=== PATIENT | male | born 1960 | race Hispanic/Latino ===

== ENCOUNTER 2017-09-14 00:47 | Inpatient (IN) | payer BC, SELFPAY ==
[2017-09-14 01:17] LABS: #Basophils 0.1 thou/uL (0.0-0.2); #Eosinphils 0.2 thou/uL (0.0-0.7); #Lymphocytes 4.1 thou/uL (1.20-3.40); #Monocytes 0.8 thou/uL (0.11-0.59); #Neutrophils 5.1 thou/uL (1.40-6.50); %Basophils 0.8 % (0.0-1.0); %Eosinophils 1.6 % (0.0-10.0); %Lymphocytes 40.2 % (21.0-51.0); %Monocytes 7.5 % (0.0-10.0); Hematocrit 45.3 % (42.0-52.0); Mean Platelet Volume 7.6 fL (7.4-10.4); Red Blood Cell (RBC) Count 4.91 mill/uL (4.70-6.10); White Blood Cell (WBC) Count 10.3 thou/uL (4.8-10.8)
[2017-09-14 01:25] LABS: PTT 30.4 SEC (22.9-36.1); Prothrombin Time 12.6 SEC (12.0-14.7)
[2017-09-14 01:28] LABS: Digoxin Less than 0.15 ng/mL (0.8-2.0)
[2017-09-14 01:29] LABS: Chloride 107 mmol/L (98-107)
[2017-09-14 01:30] LABS: ALT (SGPT) 14 U/L (8-55); AST (SGOT) 13 U/L (5-34); Alkaline Phosphatase 81 U/L (40-150); Anion Gap 12 mmol/L (10-20); BUN (Urea Nitrogen) 21 mg/dL (8.4-25.7); Bilirubin, Total 0.3 mg/dL (0.2-1.2); CK (CPK) 131 U/L (30-200); Calc. Creatinine Clearance 0 mL/min (70-130); Calcium 9.3 mg/dL (7.8-10.44); Carbon Dioxide 25 mmol/L (22-29); Estimated GFR-MDRD 72; Globulin 3.3 g/dL (2.4-3.5); Lipase 39 U/L (8-78); Protein, Total 7.3 g/dL (6.0-8.3)
[2017-09-14] MEDS ORDERED: Nitroglycerin 2% Ointment 1 INCH/1 GM Packet ONE ×2 (02:11→13:03)
[2017-09-14] MEDS ORDERED: Ondansetron ODT 4 MG TAB SL PRN (03:10)
[2017-09-14] MEDS ORDERED: Acetaminophen 325 MG TAB PO PRN ×2 (03:10→11:19)
[2017-09-14] MEDS ORDERED: Ondansetron HCl/PF 4 MG/2 ML Vial IVP PRN (03:10)
[2017-09-14 03:32] VITALS: BMI 30.7
[2017-09-14] MEDS ORDERED: Heparin 10,000 UNITS/ 10 ML VIAL SLOW IVP SCH (05:30)
[2017-09-14] MEDS ORDERED: Heparin 25,000 units/D5W 500 ML IV SCH (05:30)
--- NOTE | 2017-09-14 05:42 | PDOC.EVN ---
Event Note - Event Note Event Note: [id number] h&p dictated `1. Angina 2. nstemi 3. htn 4. pain plan: see orders
[2017-09-14] MEDS ORDERED: Nitroglycerin 2% Ointment 1 INCH/1 GM Packet TOP SCH (06:00)
[2017-09-14] MEDS ORDERED: Heparin 25,000 units/D5W 500 ML IVPB SCH ×2 (06:00→23:00)
[2017-09-14] MEDS: Heparin 10,000 UNITS/ 10 ML VIAL SLOW IVP SCH ×2 (06:10→22:55)
[2017-09-14] MEDS ORDERED: Atorvastatin Calcium 20 MG TAB PO SCH ×2 (06:15→21:00)
[2017-09-14 06:36] LABS: Hematocrit 43.2 % (42.0-52.0)
[2017-09-14 07:13] LABS: PTT 147.9 SEC (22.9-36.1)
[2017-09-14 08:10] LABS: Troponin I 11.676 ng/mL (< 0.028)
[2017-09-14] MEDS: Lisinopril 5 MG TAB PO SCH (08:11)
--- NOTE | 2017-09-14 08:50 | RAD ---
1 VIEW CHEST: Date: 09/14/17 HISTORY: Chest pain x1 day. COMPARISON: None. FINDINGS: Portable upright chest demonstrates normal cardiac silhouette. Pulmonary vessels and hilum are joselyn l. Costophrenic angles are clear. No masses. No consolidation. No pneumothorax or osseous abnormalit ies. IMPRESSION: No acute cardiopulmonary process. POS: [facility]
[2017-09-14] MEDS ORDERED: FLU VACC QS2017-18 36 mo. & older 0.5 ML SYRINGE IM ONE (09:00)
[2017-09-14] MEDS ORDERED: Amlodipine 5 MG TAB PO SCH (09:00)
--- NOTE | 2017-09-14 10:57 | HP ---
DATE OF ADMISSION: 09/14/2017 CHIEF COMPLAINT: Chest pain. HISTORY OF PRESENT ILLNESS: The patient is 57 years old male with past medical history of hypertension, having intermittent chest pain for the past 1 month, chest pain occurs on exertion, release on his own and release at rest also, mild in intensity, last night, all of a sudden, the patient was watching TV and started having chest pain. Chest pain was substernal, pressure kind of pain, mild, 4/10, pain improved in the ER after nitro and aspirin was given. Denies any trouble breathing, denies any sweating, denies any nausea, denies any vomiting, denies any diarrhea, denies any bloody stools, and denies any black stools. PAST MEDICAL HISTORY: Hypertension. PAST SURGICAL HISTORY: None. SOCIAL HISTORY: Denies smoking, denies alcohol, denies any drugs. FAMILY HISTORY: Positive for heart problems. REVIEW OF SYSTEMS: Constitutional: Denies any fever, denies any chills. Eyes : Denies vision problems. Ears: Denies hearing loss. Neck: Denies any neck pain. Cardiovascular system: Positive for chest pain. Respiratory system: Denies any cough, denies any sputum production. Gastrointestinal: Denies nausea, vomiting. Integumentary: Denies any rash. Musculoskeletal: Denies any joint deformities. All other review of systems are reviewed and are negative. PHYSICAL EXAMINATION: CONSTITUTIONAL/VITAL SIGNS: At the time of H and P performed temperature 98, blood pressure is 138/78, heart rate 78, pulse ox 95%, respirations 18. GENERAL: The patient appears comfortable. HEENT: Pupils equal, round, and reactive. Anterior nares patent. Nose normal. Ears normal. Teeth intact. Tongue is moist. NECK: Supple. No JVD. CARDIOVASCULAR SYSTEM: S1, S2 present. Regular rate and rhythm, no murmurs, no rubs, no gallops. RESPIRATORY SYSTEM: No wheezing, no rhonchi. Breath sounds bilaterally. GASTROINTESTINAL: Abdomen soft, nontender, no guarding, no organomegaly, no masses felt. MUSCULOSKELETAL: No edema. INTEGUMENTARY: No obvious rashes seen. PSYCHIATRIC: Mood is appropriate at this time. LABORATORY DATA: At the time of H and P performed, white count 10.3, hemoglobin 15.4, platelet count is 291. PT 12.6, INR 0.9. BMP: Sodium 140, potassium 3.8, chloride 107, CO2 of 25, BUN 21, creatinine 1.01. Troponin 0.010 , digoxin less than 0.15. Repeat troponin is 3.26. ASSESSMENT AND PLAN: The patient is 57 years old male. 1. Angina/chest pain: currently chest pain resolved. Plan to continue nitro paste. Plan to monitor the patient closely. 2. Non-ST segment elevation myocardial infarction. Plan to check cardiac enzymes. Plan to monitor the patient closely. Plan to start patient on heparin drip per ACS protocol. Plan to consult Cardiology to evaluate the patient. Plan to keep patient n.p.o. 3. Hypertension. Monitor blood pressure. Continue home blood pressure medications. 4. Pain. P.r.n. pain medications. The case was discussed in detail with the patient. The patient is FULL CODE. MTDD
--- NOTE | 2017-09-14 11:18 | PDOC.PN ---
- Subjective Encounter Start Date: 09/14/17 Encounter Start Time: 07:15 Subjective: no current chest pain or sob -: brother at bedside - Objective MAR Reviewed: Yes Vital Signs & Weight: Vital Signs (12 hours) Temp Pulse Resp BP BP Pulse Ox 09/14/17 08:11 83 09/14/17 08:09 83 130/84 09/14/17 07:56 96.8 F L 83 16 130/84 98 09/14/17 06:10 97.7 F 88 18 128/79 97 09/14/17 03:34 98 F 78 18 09/14/17 03:01 98 F 78 18 138/78 95 Weight Weight 205 lb 8 oz I&O: 09/13/17 09/14/17 09/15/17 06:59 06:59 06:59 Output Total 250 Balance -250 Result Diagrams: 09/14/17 06:22 09/14/17 01:01 Phys Exam - Physical Examination HEENT: PERRLA, moist MMs Neck: no JVD, supple Respiratory: no wheezing, no rales Cardiovascular: RRR, no significant murmur Gastrointestinal: soft, non-tender, positive bowel sounds Musculoskeletal: no edema, pulses present Neurological: non-focal, moves all 4 limbs Psychiatric: A&O x 3 Dx/Plan (1) NSTEMI (non-ST elevated myocardial infarction) Code(s): I21.4 - NON-ST ELEVATION (NSTEMI) MYOCARDIAL INFARCTION Status: Acute (2) HTN (hypertension) Code(s): I10 - ESSENTIAL (PRIMARY) HYPERTENSION Status: Chronic Qualifiers: Hypertension type: essential hypertension Qualified Code(s): I10 - Essential (primary) hypertension - Plan keep pt npo -: will likely need cardiac cath -: will f/u with -: is on asp, lipitor, small dose lopressor, heparin drip * . Review of Systems - Medications/Allergies Allergies/Adverse Reactions: Allergies Allergy/AdvReac Type Severity Reaction Status Date / Time No Known Drug Allergies Allergy Verified 09/14/17 03:21 Medications: Current Medications Acetaminophen (Tylenol) 650 mg PO Q4H PRN PRN Reason: Headache/Fever or Pain Stop: 09/14/17 15:00 Amlodipine Besylate (Norvasc) 5 mg PO DAILY KYE Last Admin: 09/14/17 08:09 Dose: 5 mg Aspirin (Aspirin Chewable) 81 mg PO DAILY KYE Stop: 09/14/17 15:00 Last Admin: 09/14/17 08:11 Dose: 81 mg Atorvastatin Calcium (Lipitor) 20 mg PO HS KYE Heparin Sodium (Porcine) (Heparin 1,000 Units/Ml (10 Ml)) 0 units SLOW IVP ASDIR KYE PRN Reason: Protocol Last Admin: 09/14/17 06:10 Dose: 4,000 units Lactated Ringer's (Lactated Ringer's) 1,000 mls @ 75 mls/hr IV .[id number] KYE Stop: 09/14/17 15:00 Heparin Sodium/Dextrose (Heparin 25,000 Units/D5w 500 Ml) 500 mls @ 0 mls/hr IVPB INF KYE; Per Protocol PRN Reason: Protocol Last Admin: 09/14/17 06:11 Dose: 500 mls Lisinopril (Zestril) 5 mg PO DAILY [facility] Last Admin: 09/14/17 08:11 Dose: 5 mg Nitroglycerin (Nitro-Bid 2% Ointment) 1 inch TOP Q8HR [facility] Stop: 09/14/17 15:00 Last Admin: 09/14/17 08:11 Dose: Not Given Ondansetron HCl (Zofran) 4 mg IVP Q6H PRN PRN Reason: Nausea/Vomiting Stop: 09/14/17 15:00 Ondansetron HCl (Zofran Odt) 4 mg SL Q6H PRN PRN Reason: Nausea/Vomiting Stop: 09/14/17 15:00 Sodium Chloride (Flush - Normal Saline) 10 ml IVF PRN PRN PRN Reason: Saline Flush Stop: 09/14/17 15:00
[2017-09-14] MEDS: Lactated Ringer's 1,000 ML IV SCH ×2 (11:51→15:39)
[2017-09-14] MEDS ORDERED: Fentanyl 100 MCG/2 ML VIAL ONE (12:39)
[2017-09-14] MEDS ORDERED: Midazolam HCl 2 mg/2 ml Vial ONE (12:39)
[2017-09-14] MEDS ORDERED: Metoprolol Tartrate 5 MG/5 ML VIAL ONE (12:56)
[2017-09-14] MEDS ORDERED: Heparin 10,000 UNITS/1 ML VIAL ONE (12:58)
[2017-09-14] MEDS ORDERED: Communication Order-Pharmacy FS ONE (13:23)
[2017-09-14] MEDS ORDERED: Nitroglycerin 0.4 MG TAB (25 Tab Bottle) SL PRN (13:24)
[2017-09-14] MEDS ORDERED: Acetaminophen/Codeine 30-300mg Tablet PO PRN ×2 (13:24)
[2017-09-14] MEDS ORDERED: traMADol HCl 50 MG TAB PO PRN (13:24)
[2017-09-14] MEDS ORDERED: Sodium Chloride 0.9% 200 ML IV SCH (13:30)
--- NOTE | 2017-09-14 14:03 | CON ---
DATE OF CONSULTATION: 09/14/2017 CARDIOLOGY CONSULTATION REASON FOR CONSULTATION: Non-ST elevation myocardial infarction with continued chest pain. HISTORY OF PRESENT ILLNESS: Ms. Sharma is a 57-year-old man. The patient has a long history of hypertension, but no other cardiac problems. States he started having pain in middle of his chest, across his chest last night and finally came here to the emergency room. He was found to have some increasing cardiac enzymes here. He was given aspirin, nitrates, and also started on intravenous heparin. However, despite that, he continues to have chest discomfort which has not resolved. The patient states the pain is not as bad as that was previously, but he still has some tightness in his chest. PAST MEDICAL HISTORY: 1. Positive for hypertension. 2. Negative for any coronary disease. 3. Unknown cholesterol status. 4. He does not smoke or use tobacco products. SOCIAL HISTORY: He has 2 young men in the room who are his sons. He has no history of smoking, otherwise has been active and healthy. REVIEW OF SYSTEMS: Constitutional: No significant weight gain or loss. Vision : No changes. Hearing: No changes. Pulmonary: No cough or wheezing. Gastrointestinal: No nausea, vomiting, diarrhea. Skin: No rashes. Neurologic : No unilateral weakness or numbness. Psychiatric: No unusual depression or anxiety. PHYSICAL EXAMINATION: GENERAL: A pleasant 57-year-old gentleman in no distress. VITAL SIGNS: Blood pressure 130/84, pulse 80s. EYES: Sclerae nonicteric. MOUTH: Mucous membranes moist. NECK: Supple, no lymphadenopathy. LUNGS: Clear. CARDIAC: Normal S1 and S2. ABDOMEN: Soft, nontender. EXTREMITIES: No clubbing, no cyanosis, or edema. Peripheral pulses are intact. SKIN: Warm and dry. LABORATORY DATA AND X-RAY FINDINGS: EKG, normal sinus rhythm, frequent PVCs, and ST depression in the lateral leads. Repeat has been ordered. Troponin is 3.26 followed by 11.67. ASSESSMENT: 1. Non-ST elevation myocardial infarction with continued chest pain. 2. Increase blood sugar may have diabetes. 3. Normal EKG. PLAN: Recommend that he proceed to cardiac catheterization. Discussed risks of stroke, heart attack, iodine allergy, interfering with blood supply to leg or kidney, stent thrombosis, stent restenosis. The patient understands and wishes to proceed. Arrangements were being made to proceed. SARINA
[2017-09-14] MEDS: Nitroglycerin 2% Ointment 1 INCH/1 GM Packet TOP SCH ×2 (14:54→22:40)
[2017-09-14] MEDS ORDERED: Metoprolol Tartrate 5 MG/5 ML VIAL IVP PRN (15:17)
[2017-09-14] MEDS ORDERED: Nitroglycerin 50 MG/250 ML BOT 250 ML IVPB SCH (15:30)
[2017-09-14] MEDS ORDERED: Metoprolol Tartrate 25 MG TAB PO SCH ×2 (15:30→21:00)
[2017-09-14] MEDS ORDERED: Iopamidol 370 76% 100 ML VIAL ONE (15:53)
--- NOTE | 2017-09-14 16:05 | CON ---
DATE OF CONSULTATION: 09/14/2017 REASON FOR CONSULTATION: Non-ST elevation myocardial infarction. HISTORY OF PRESENT ILLNESS: Mr. Sharma is a 57-year-old gentleman. The patient presented with chest pain, found to have increased cardiac enzymes. Mr. Sharma had the onset of severe substernal chest pain, the pain across his chest last night had been going off and on for about a month. It would come on with exertion go away with rest. Last n ight; however, had sudden onset it was intense and it was at rest, came to the emergency room and he was given nitroglycerin and aspirin and had improvement in chest pain. Subsequently, given heparin and the pain improved, but he states it never resolved. Patient continues to have chest pain at the present time. PAST MEDICAL HISTORY: Positive for hypertension. PAST SURGICAL HISTORY: Negative. SOCIAL HISTORY: No smoking, no alcohol, no drugs. FAMILY HISTORY: Positive for coronary artery disease. REVIEW OF SYSTEMS: Constitutional: No significant weight gain or loss. Vision: No changes. Hear ing: No changes. Pulmonary: No cough or wheezing. Gastrointestinal: No nausea, vomiting, diarrh ea. Skin: No rashes. Neurologic: No unilateral weakness or numbness. Psychiatric: No unusual d epression or anxiety. Hematologic: No unusual bruising. Genitourinary: No burning with urination . MEDICATIONS AT HOME: The patient had been taking amlodipine and lisinopril. The patient also states that he did not smoke or use tobacco. PHYSICAL EXAMINATION: GENERAL: A pleasant 57-year-old gentleman, in no distress, but continued to have luis st discomfort. VITAL SIGNS: Blood pressure 130/84; pulse 83, regular. HEENT: Sclerae nonicteric. Mouth mucous membranes moist. NECK: Supple, no lymphadenopathy. LUNGS: Clear, no wheezing, rales, or rhonchi. CARDIAC: Normal S1, normal S2. There is no murmur, rub, or gallop. ABDOMEN: Soft, nontender, no hepatosplenomegaly. EXTREMITIES: Warm, dry, no clubbing, cyanosis, or edema. HEMATOLOGIC: No unusual bruising. SKIN: Warm and dry. PERTINENT LABORATORY AND X-RAY FINDINGS: The troponin 11.676. EKG showed frequent PVCs and ST depr ession in the lateral leads. ASSESSMENT: 1. Non-ST elevation myocardial infarction with ongoing chest pain. 2. Possible diabetes with blood sugar 168. 3. Markedly abnormal electrocardiogram. PLAN: I would recommend proceeding to cardiac catheterization. Discussed risks of stroke, heart at tack, iodine allergy, loss of blood supply to the leg or kidney, stent thrombosis, stent restenosis. The patient understands and wishes to proceed.
--- NOTE | 2017-09-14 16:48 | CON ---
DATE OF CONSULTATION: 09/14/2017 HISTORY OF PRESENT ILLNESS: This is a 57-year-old gentleman with about a 1-month history of exertio nal angina. He developed angina while watching TV yesterday evening, rated 4/10 and persisted and h e presented to the emergency room where he had resolution with treatment. He had a bump in his trop onin I and an EKG showing some ST segment depression laterally. Subsequent EKG at noon today showed resolution of these changes. His troponin I peaked at 11.6 as of 6:00 this morning. PAST MEDICAL HISTORY: Includes hypertension for which he takes amlodipine 5 mg daily and Lisinopril 5 mg daily. He denies any history of elevated cholesterol and blood work [address] Kemp, was done and he was told that he had normal enzymes. PAST SURGICAL HISTORY: Negative. SOCIAL HISTORY: He is a non-smoker. He is not . He has 9 children. He has a twin brother who had coronary bypass grafting earlier this year. PHYSICAL EXAMINATION: GENERAL: He is an alert, cooperative gentleman. Height 5 feet 9 inches, weight 205 inches. NECK: No carotid bruits. LUNGS: Clear to auscultation. CARDIAC: Slight resting tachycardia. No murmurs. ABDOMEN: Soft, nontender. EXTREMITIES: He has palpable posterior tibial pulses bilaterally. He is right arm dominant, has go od left radial pulse. Cardiac catheterization demonstrated a left dominant system with an occluded nondominant right coronary artery. He had high grade lesions involving his proximal LAD as well as an obtuse marginal branch, distal circumflex and left PDA. He had apical akinesis. PLAN: At this time is for coronary bypass grafting, probably with left radial and we plan on doing this in the morning. In the meantime, maintain on heparin, begin beta blockers. Continue aspirin.
[2017-09-14] MEDS ORDERED: Potassium Chloride 60 MEQ/30 ML VIAL ONE (16:50)
[2017-09-14] MEDS ORDERED: Protamine Sulfate 250 MG/25 ML VIAL ONE (16:50)
[2017-09-14] MEDS ORDERED: Heparin 30,000 units/30 ml VIAL ONE (16:50)
[2017-09-14] MEDS ORDERED: Cardioplegic Soln 1,000 ML BAG ONE (16:50)
[2017-09-14] MEDS ORDERED: Calcium Chloride 1 GM/10 ML Abboject SYRINGE ONE (16:50)
[2017-09-14] MEDS ORDERED: Lidocaine 2% PF 100 mg/5 ml Syringe ONE (16:50)
[2017-09-14] MEDS ORDERED: Papaverine 60 MG/2 ML VIAL ONE (16:50)
[2017-09-14] MEDS ORDERED: DOPamine 400 MG/10 ML VIAL ONE (16:50)
[2017-09-14] MEDS ORDERED: Aminocaproic Acid 5 GM/20 ML VIAL ONE (16:50)
[2017-09-14] MEDS ORDERED: Sodium Bicarb 50 MEQ/50 ML Abboject 8.4% SYRINGE ONE (16:50)
[2017-09-14] MEDS ORDERED: Heparin 5,000 UNITS/ML VIAL ONE (16:50)
[2017-09-14] MEDS ORDERED: Magnesium Sulfate 1 GM/2 ML VIAL ONE (16:50)
[2017-09-14] MEDS ORDERED: Thrombin 5000 UNITS/5 ML VIAL ONE (16:50)
[2017-09-14] MEDS ORDERED: Nitroglycerin 50 MG/250 ML BOT ONE (16:50)
[2017-09-14] MEDS: Metoprolol Tartrate 25 MG TAB PO SCH (20:25)
[2017-09-15] MEDS: Nitroglycerin 2% Ointment 1 INCH/1 GM Packet TOP SCH (05:04)
[2017-09-15] MEDS: Lactated Ringer's 1,000 ML IV SCH (05:04)
[2017-09-15 05:22] LABS: Hemoglobin A1c 5.6 % (4.0-6.0)
[2017-09-15] MEDS ORDERED: Heparin 10,000 UNITS/1 ML VIAL 30,000 UNITS in Sodium Chloride 0.9% 1,000 ML FS SCH (07:00)
[2017-09-15] MEDS: Lisinopril 5 MG TAB PO SCH (07:57)
[2017-09-15] MEDS: Metoprolol Tartrate 25 MG TAB PO SCH (07:57)
--- NOTE | 2017-09-15 08:21 | CON ---
DATE OF CONSULTATION: 09/15/2017 REASON FOR CONSULTATION: CCU management. HISTORY OF PRESENT ILLNESS: This is a 57-year-old male who presented yesterday with chest pain. He was found to have multivessel coronary disease with cardiac catheterization. He also bumped his tr oponin indicative of myocardial ischemia. He is scheduled for bypass later today. At the current t breana he is not having any chest pain or shortness of breath. PAST MEDICAL HISTORY: He has no previous history of respiratory issues including no COPD, no asthma . Hypertension. PAST SURGICAL HISTORY: None. SOCIAL HISTORY: Nonsmoker, does not consume alcohol. ALLERGIES: None. FAMILY MEDICAL HISTORY: Remarkable for coronary artery disease in his identical twin brother who willard d bypass 6 months ago. REVIEW OF SYSTEMS: Otherwise, negative. PHYSICAL EXAMINATION: VITAL SIGNS: Temperature 97.7, pulse 78, blood pressure 123/65, O2 sat 100%, respiratory rate 17. GENERAL: He is awake and alert, in no distress. HEENT: Unremarkable. NECK: No JVD. LUNGS: Clear. CARDIOVASCULAR: S1, S2 regular. ABDOMEN: Soft. EXTREMITIES: No clubbing, cyanosis, or edema. LABORATORY DATA: Sodium 140, potassium 3.8, BUN 21, creatinine 1.0. Troponin 11.6, White blood yassine l count 10.3, hematocrit 45.3, platelet count 291. Chest x-ray shows no significant findings. ASSESSMENT: Myocardial infarction/coronary disease. PLAN: Bypass surgery later today. I will evaluate his potential for extubation after surgery.
[2017-09-15] MEDS ORDERED: Fentanyl 250 MCG/5 ML VIAL ONE ×2 (09:58→11:40)
[2017-09-15] MEDS ORDERED: Midazolam HCl 5 mg/5 ml Vial ONE (09:58)
[2017-09-15] MEDS ORDERED: Propofol 200 MG/20 ML VIAL ONE (10:33)
[2017-09-15] MEDS ORDERED: Vecuronium 10 MG VIAL ONE ×2 (10:33→12:27)
[2017-09-15] MEDS ORDERED: Lidocaine 2% MPF 10 ML AMP (For Epidural Use) ONE (10:33)
[2017-09-15] MEDS ORDERED: PHENYLEPHRINE-NS 100 MCG/ML 10 ML SYRINGE ONE (10:33)
--- NOTE | 2017-09-15 11:44 | EKG ---
Test Reason : Blood Pressure : / mmHG Vent. Rate : 091 BPM Atrial Rate : 091 BPM P-R Int : 130 ms QRS Dur : 092 ms QT Int : 332 ms P-R-T Axes : 015 044 076 degrees QTc Int : 408 ms Normal sinus rhythm Septal infarct , age undetermined Nonspecific ST-T changes Abnormal ECG No previous ECGs available Confirmed by DR. Richie NAVARRO ([id number]) on 09/15/2017 11:43:50 AM Referred By: ABEL Confirmed By:DR. Richie NAVARRO
[2017-09-15] MEDS ORDERED: Fentanyl 100 MCG/2 ML VIAL ONE (13:33)
[2017-09-15] MEDS ORDERED: Insulin Regular 300 UNITS/3 ML VIAL ONE (13:39)
--- NOTE | 2017-09-15 14:59 | PDOC.PN ---
- Subjective Encounter Start Date: 09/15/17 Encounter Start Time: 07:50 Subjective: no chest pain or sob -: is going to OR for cabg this am - Objective MAR Reviewed: Yes Vital Signs & Weight: Vital Signs (12 hours) Temp Pulse Resp Pulse Ox 09/15/17 08:00 98.1 F 82 14 98 09/15/17 07:57 82 09/15/17 07:00 98.1 F 09/15/17 04:00 97.7 F Weight Weight 205 lb 8 oz Most Recent Monitor Data Heart Rate from ECG 79 NIBP 119/78 NIBP BP-Mean 92 Respiration from ECG 16 SpO2 100 I&O: 09/14/17 09/15/17 09/16/17 06:59 06:59 06:59 Intake Total 2362.2 471 Output Total 1900 550 Balance 462.2 -79 Result Diagrams: 09/14/17 06:22 09/14/17 01:01 Phys Exam - Physical Examination HEENT: PERRLA, moist MMs Neck: no JVD, supple Respiratory: no wheezing, no rales Cardiovascular: RRR, no significant murmur Gastrointestinal: soft, non-tender, positive bowel sounds Musculoskeletal: no edema, pulses present Neurological: non-focal, moves all 4 limbs Psychiatric: A&O x 3 Dx/Plan (1) NSTEMI (non-ST elevated myocardial infarction) Code(s): I21.4 - NON-ST ELEVATION (NSTEMI) MYOCARDIAL INFARCTION Status: Acute (2) HTN (hypertension) Code(s): I10 - ESSENTIAL (PRIMARY) HYPERTENSION Status: Chronic Qualifiers: Hypertension type: essential hypertension Qualified Code(s): I10 - Essential (primary) hypertension (3) CAD (coronary artery disease) Code(s): I25.10 - ATHSCL HEART DISEASE OF [place] CORONARY ARTERY W/O ANG PCTRS Status: Acute Qualifiers: Coronary Disease-Associated Artery/Lesion type: [place] artery [place] vs. transplanted heart: [place] heart - Plan for CABG today -: will f/u post op -: family at bedside -: AMEYA is his oldest sister * . Review of Systems - Medications/Allergies Allergies/Adverse Reactions: Allergies Allergy/AdvReac Type Severity Reaction Status Date / Time No Known Drug Allergies Allergy Verified 09/14/17 03:21 Medications: Current Medications Nitroglycerin/Dextrose (Nitroglycerin 50 Mg/250 Ml Bot) 250 mls @ 0 mls/hr IVPB INF KYE PRN Reason: Titrate Last Admin: 09/14/17 15:38 Dose: 250 mls Heparin Sodium/Dextrose (Heparin 25,000 Units/D5w 500 Ml) 500 mls @ 0 mls/hr IVPB INF KYE; Per Protocol PRN Reason: Protocol Heparin Sodium (Porcine) 30, (000 units/ Sodium Chloride) 1,003 mls @ 0 mls/hr FS WILLCALL KYE PRN Reason: As Directed Stop: 09/15/17 18:00 Metoprolol Tartrate (Lopressor) 25 mg PO BID KYE Last Admin: 09/15/17 07:57 Dose: 25 mg Metoprolol Tartrate (Lopressor) 2.5 mg IVP ONE PRN PRN Reason: Angina Stop: 09/21/17 15:18 Last Admin: 09/14/17 15:38 Dose: 2.5 mg
[2017-09-15] MEDS ORDERED: Mag-Al 1200 mg/1200 mg/30 ML UDCUP PO PRN (15:13)
[2017-09-15] MEDS ORDERED: Acetaminophen 325 MG TAB PO PRN (15:13)
[2017-09-15] MEDS ORDERED: Fentanyl 100 MCG/2 ML VIAL SLOW IVP PRN (15:13)
[2017-09-15] MEDS ORDERED: hydrALAZINE 20 MG/ML VIAL SLOW IVP PRN (15:13)
[2017-09-15] MEDS ORDERED: Bisacodyl 10 MG SUPP PR PRN (15:13)
[2017-09-15] MEDS ORDERED: Hetastarch 6% 500 ML 500 ML IVPB PRN (15:13)
[2017-09-15] MEDS ORDERED: Nitroglycerin 50 MG/250 ML BOT 250 ML IVPB PRN (15:13)
[2017-09-15] MEDS ORDERED: Post-Op Insulin Drip Protocol IVPB ONE (15:13)
[2017-09-15] MEDS ORDERED: Guaifenesin DM 100-10/5 ML UDCUP PO PRN (15:13)
[2017-09-15] MEDS ORDERED: Promethazine HCl 25 MG/ML VIAL IM PRN (15:13)
[2017-09-15] MEDS ORDERED: DOPamine 400 MG/D5W 250 ML 250 ML IVPB PRN (15:13)
[2017-09-15] MEDS ORDERED: Phenylephrine 10 MG/NS 250 ML 250 ML IVPB PRN (15:13)
[2017-09-15] MEDS ORDERED: Bisacodyl 5 MG TAB PO PRN (15:13)
[2017-09-15] MEDS ORDERED: Magnesium Sulfate 5 GM in Sodium Chloride 0.9% 250 ML 1,000 ML IV SCH (15:15)
[2017-09-15] MEDS ORDERED: Dextrose 5% in Water 1,000 ML IV PRN (15:20)
[2017-09-15] MEDS ORDERED: Dextrose 50% Abboject 50 ML SYRINGE SLOW IVP PRN (15:20)
[2017-09-15 15:59] LABS: Hematocrit 38.3 % (42.0-52.0); Mean Platelet Volume 7.8 fL (7.4-10.4); White Blood Cell (WBC) Count 23.9 thou/uL (4.8-10.8)
[2017-09-15 16:03] LABS: PTT 30.9 SEC (22.9-36.1)
[2017-09-15 16:04] LABS: Prothrombin Time 16.3 SEC (12.0-14.7)
--- NOTE | 2017-09-15 16:06 | OP ---
DATE OF PROCEDURE: 09/15/2017 PREOPERATIVE DIAGNOSES: Coronary artery disease, status post non-STEMI. PROCEDURE: Coronary artery bypass graft x5 with CRUZ good quality to a surprisingly poor quality 1. 5 mm LAD with posterior plaquing, left radial good quality to an obtuse marginal 1.5-2 mm, saphenous vein, small to good quality to a left PDA, distal circumflex and occluded ramus with the ramus bein g a 1.25 mm vessel. SURGEON: Devyn Lafleur M.D. THERAPEUTIC PROGRAM WORKER: Nacho Kidd M.D. TRANSFUSION: None. PROCEDURE IN DETAIL: After adequate anesthesia had been obtained, the patient was prepped and drape d. I harvested the left radial after ensuring good plethysmography with occlusion. Following this, the wound was closed. I then did an endovascular vein harvest of the left greater saphenous vein. Following this, I performed a median sternotomy and opened the right pleura widely with the sternal saw and then, I soak this up with 2-0 Vicryl suture. Left internal mammary artery was harvested, e ntering the left pleura in one small area. The patient was heparinized, the mammary divided distall y, passed posterior to the thymus gland. The aorta and right atrium were cannulated and cardiopulmo nary bypass instituted. Vessels were inspected. Aorta was cross-clamped and a liter of [place] ca rdioplegic solution was then given. Individually, the distal circumflex anastomosis was completed a nd then the left PDA anastomosis. The vein graft to the PDA was then anastomosed to the distal connell of the distal circumflex graft create a sequential anastomosis. Following this, the radial artery was anastomosed to the obtuse marginal. There was another vessel just distal to the obtuse marginal , which was not appreciated on the CAT films, but appeared rather small. Following this, the saphen ous vein that remained was anastomosed, what was felt to be the ramus; however, after completing thi s anastomosis, I realized that this was the diagonal that did not need to be grafted. I amputated t his vein graft from the diagonal and oversewed the vein graft there. The vein graft was then anasto mosed to the ramus. Finally, the CRUZ was anastomosed to the LAD and the cross-clamp was then remov ed. Partial occluding clamp was placed, and the vein graft from the distal circumflex and then the vein graft from the ramus were anastomosed to the aortic root into the connell of the ramus graft was p laced to radial artery graft. Following this, the rings were placed to elyse the 2 proximal anastomo sis. The patient was weaned from cardiopulmonary bypass. Cannulas were removed and protamine was g iven systemically. Mediastinal and bilateral pleural drains were placed. Following this, the rosales um was reapproximated with #7 interrupted wire using vancomycin paste on the sternal edges, platelet -enriched plasma and platelet poor blood. Subcutaneous tissue and skin were closed in layers.
[2017-09-15 16:15] LABS: Anion Gap 7 mmol/L (10-20); BUN (Urea Nitrogen) 18 mg/dL (8.4-25.7); Calc. Creatinine Clearance 120 mL/min (70-130); Calcium 7.2 mg/dL (7.8-10.44); Carbon Dioxide 24 mmol/L (22-29); Chloride 110 mmol/L (98-107); Estimated GFR-MDRD 85
[2017-09-15] MEDS: Ketorolac Tromethamine 30 MG/ML VIAL IVP SCH ×2 (16:20→23:06)
[2017-09-15] MEDS: CEFAZOLIN/Water 2 GM/20 ML SYRINGE SLOW IVP SCH ×2 (16:20→23:59)
[2017-09-15] MEDS: Sodium Chloride 0.9% 1,000 ML IV SCH (16:20)
--- NOTE | 2017-09-15 16:20 | PRG ---
DATE OF SERVICE: 09/15/2017 Mr. Sharma is doing well postoperatively. He underwent bypass surgery x5. He is on intravenous d opamine at low dose, doing well. Continue current medical regimen, begin statin therapy and beta bl ockers later if tolerated.
[2017-09-15 16:21] LABS: Mechanical Tidal Volume 600 ml; Mode SIMV.PSV; Modified Allen's Test NOT DONE; Oxyhemoglobin 93.7 % (94.0-97.0); Pressure Support 10 cmH2O; Sodium 141 mmol/L (135-148); Vent YES
[2017-09-15 16:24] LABS: Band 15 % (5-11); Neutrophil 81 % (42-75)
[2017-09-15] MEDS: Potassium Chloride 20 MEQ/100 ML PREMIX BAG IVPB PRN ×2 (16:42→21:22)
[2017-09-15] MEDS: Ondansetron HCl/PF 4 MG/2 ML Vial IVP PRN (16:56)
--- NOTE | 2017-09-15 17:59 | RAD ---
CHEST 1 VIEW: Date: 09/15/17 HISTORY: Post open heart surgery. COMPARISON: Chest 1 view from prior day. FINDINGS: Central venous catheter is present with tip in the right atrium. Mediastinal drains are seen. No lar ge pneumothorax. Patient intubated with endotracheal tube tip craniad to the bart approximately 2. 5 cm. Mediastinal drain is present. Heart size is mildly prominent. Mild atelectasis. IMPRESSION: Expected postoperative findings. No complication. POS: [facility]
[2017-09-15 19:05] LABS: Oxyhemoglobin 95.4 % (94.0-97.0); Sodium 142 mmol/L (135-148)
[2017-09-15 19:06] LABS: Mode PSV/CPAP; Modified Allen's Test NOT DONE; Pressure Support 10 cmH2O; Vent YES
[2017-09-15] MEDS: Fentanyl 100 MCG/2 ML VIAL SLOW IVP PRN ×2 (19:45→22:18)
[2017-09-15] MEDS: Famotidine/PF 20 mg/2ml Vial SLOW IVP SCH (19:46)
[2017-09-15 20:59] LABS: Hematocrit 36.4 % (42.0-52.0)
[2017-09-15] MEDS ORDERED: Simvastatin 20 MG TAB PO SCH (21:00)
[2017-09-16] MEDS: Sodium Chloride 0.9% 1,000 ML IV SCH ×2 (01:48→10:15)
[2017-09-16] MEDS: Fentanyl 100 MCG/2 ML VIAL SLOW IVP PRN (02:52)
[2017-09-16 04:41] LABS: Anion Gap 9 mmol/L (10-20); BUN (Urea Nitrogen) 16 mg/dL (8.4-25.7); Calc. Creatinine Clearance 131 mL/min (70-130); Calcium 7.8 mg/dL (7.8-10.44); Carbon Dioxide 24 mmol/L (22-29); Chloride 111 mmol/L (98-107); Estimated GFR-MDRD Greater than 90
[2017-09-16 04:57] LABS: #Lymphocytes 1.6 thou/uL (1.20-3.40); #Monocytes 1.3 thou/uL (0.11-0.59); #Neutrophils 10.6 thou/uL (1.40-6.50); %Basophils 0.3 % (0.0-1.0); %Eosinophils 0.1 % (0.0-10.0); %Lymphocytes 11.7 % (21.0-51.0); %Monocytes 9.6 % (0.0-10.0); Hematocrit 33.7 % (42.0-52.0); Mean Platelet Volume 8.1 fL (7.4-10.4); Red Blood Cell (RBC) Count 3.63 mill/uL (4.70-6.10); White Blood Cell (WBC) Count 13.5 thou/uL (4.8-10.8)
[2017-09-16] MEDS: Ketorolac Tromethamine 30 MG/ML VIAL IVP SCH ×3 (05:02→17:49)
[2017-09-16] MEDS: CEFAZOLIN/Water 2 GM/20 ML SYRINGE SLOW IVP SCH (06:15)
[2017-09-16] MEDS: Ondansetron HCl/PF 4 MG/2 ML Vial IVP PRN (06:24)
--- NOTE | 2017-09-16 08:00 | PRG ---
DATE OF SERVICE: 09/16/2017 The patient is doing well this morning post-bypass surgery. PHYSICAL EXAMINATION: VITAL SIGNS: His temperature is 98.7, pulse 63, blood pressure 112/70, weight 197 pounds. Total in take 1908, output 2345. HEENT: Unremarkable. NECK: No JVD. CHEST: Clear. CARDIAC: S1 and S2 regular. ABDOMEN: Soft. EXTREMITIES: No edema. LABORATORY DATA: White blood cell count 13, hematocrit 33.7, platelet count 175. Sodium 140, potas sium 4, chloride 111, CO2 24, BUN 16, creatinine 0.8, glucose 120. ASSESSMENT: 1. Post-coronary artery bypass graft with stable cardiopulmonary status. 2. Blood sugars are under good control. PLAN: 1. Up in chair today. Increase activity as tolerated. 2. Hopefully to the floor by tomorrow.
[2017-09-16] MEDS: HYDROcodone/Acetaminophen 5/325 mg Tablet PO PRN ×4 (08:08→21:04)
[2017-09-16] MEDS: Famotidine/PF 20 mg/2ml Vial SLOW IVP SCH ×2 (08:08→21:03)
[2017-09-16 08:44] LABS: Base Excess -2.8 mEq/L (0 (+/- 2.5)); O2 Content (venous) 11.3 VOL% (12.5-17.5)
[2017-09-16 08:44] LABS: Oxyhemoglobin 97.7 % (94.0-97.0); Sodium 137 mmol/L (135-148)
[2017-09-16 08:44] LABS: Oxyhemoglobin 97.7 % (94.0-97.0); Sodium 140 mmol/L (135-148)
[2017-09-16 08:44] LABS: Oxyhemoglobin 97.7 % (94.0-97.0); Sodium 139 mmol/L (135-148)
[2017-09-16 08:45] LABS: Oxyhemoglobin 97.6 % (94.0-97.0); Sodium 137 mmol/L (135-148)
[2017-09-16 08:45] LABS: Oxyhemoglobin 97.5 % (94.0-97.0); Sodium 137 mmol/L (135-148)
[2017-09-16 08:45] LABS: Oxyhemoglobin 95.5 % (94.0-97.0); Sodium 139 mmol/L (135-148)
[2017-09-16 08:47] LABS: Oxyhemoglobin 97.4 % (94.0-97.0); Sodium 140 mmol/L (135-148)
[2017-09-16 08:52] LABS: Mode OR ABG; Vent YES
[2017-09-16 08:53] LABS: Mode OR ABG; Vent YES
[2017-09-16 09:00] LABS: pH (venous) 7.269 (7.35-7.45)
[2017-09-16] MEDS ORDERED: Aspirin 325 MG TAB PO SCH (09:00)
[2017-09-16 09:01] LABS: Mode OR ABG; Vent YES
[2017-09-16 09:01] LABS: Mode OR ABG; Vent YES
[2017-09-16 09:02] LABS: Mode OR ABG; Vent YES
[2017-09-16 09:03] LABS: Mode OR ABG; Vent YES
[2017-09-16 09:05] LABS: Mode OR ABG; Vent YES
--- NOTE | 2017-09-16 09:42 | PRG ---
DATE OF SERVICE: 09/16/2017 SUBJECTIVE: Mr. Sharma is doing very well postoperatively and feels much better. PHYSICAL EXAMINATION: VITAL SIGNS: His blood pressure is 114/70, pulse 80, sinus. LUNGS: Clear. CARDIAC: Normal S1 and S2. ASSESSMENT: 1. Status post coronary artery bypass grafting for severe 3-vessel coronary artery disease. 2. Hypercholesterolemia. PLAN: 1. Continue supportive care. 2. Statin therapy will be instituted during this hospitalization.
--- NOTE | 2017-09-16 09:47 | RAD ---
PORTABLE AP CHEST: Date: 09-16-17 History: Post open heart surgery. Comparison: 09-15-17 FINDINGS: Post-surgical changes related to CABG are again noted. Right subclavian central venous catheter as w ell as mediastinal drain and left sided thoracostomy tube remain in place and unchanged in position. There is mild volume loss present at the right lung base with mild elevation of the right hemidiaph ragm. Pulmonary vasculature is borderline increased. Cardiac silhouette is stable in size. No other interval change. IMPRESSION: 1. Lines and tubes stable in position aside from interval removal of the endotracheal tube. 2. Bibasilar atelectasis. 3. Borderline increase in pulmonary vasculature. POS: [facility]
[2017-09-16] MEDS: Insulin Detemir 100 UNITS/ML 6 UNITS in Pre-Filled Syringe 1 EACH SC SCH ×3 (11:39→16:05)
--- NOTE | 2017-09-16 12:17 | PDOC.PN ---
- Subjective Encounter Start Date: 09/16/17 Encounter Start Time: 11:30 Subjective: awake, moving all extre, feels better -: no sob - Objective MAR Reviewed: Yes Vital Signs & Weight: Vital Signs (12 hours) Temp Pulse Resp Pulse Ox 09/16/17 08:00 98.6 F 96 16 96 09/16/17 04:00 98.7 F 09/16/17 02:53 97 Weight Weight 197 lb 12.074 oz Most Recent Monitor Data Heart Rate from ECG 86 NIBP 113/71 NIBP BP-Mean 89 Respiration from ECG 18 SpO2 97 I&O: 09/15/17 09/16/17 09/17/17 06:59 06:59 06:59 Intake Total 2362.2 1908 55.1 Output Total 1900 2245 345 Balance 462.2 -337 -289.9 Result Diagrams: 09/16/17 04:00 09/16/17 04:00 Additional Labs: Accuchecks 09/16/17 09/16/17 09/16/17 11:31 10:10 09:07 POC Glucose 104 107 113 H 09/16/17 09/16/17 09/16/17 08:14 07:34 05:59 POC Glucose 133 H 123 H 114 H 09/16/17 09/16/17 09/16/17 04:54 03:51 02:49 POC Glucose 116 H 114 H 118 H 09/16/17 09/16/17 09/15/17 01:10 00:01 22:47 POC Glucose 128 H 133 H 133 H 09/15/17 09/15/17 09/15/17 21:36 20:43 19:16 POC Glucose 111 H 134 H 129 H 09/15/17 09/15/17 09/15/17 17:54 16:49 15:39 POC Glucose 132 H 137 H 141 H 09/15/17 09/15/17 09/15/17 15:17 14:29 14:08 POC Glucose 150 H 195 H 206 H 09/15/17 09/15/17 09/15/17 13:37 13:02 12:27 POC Glucose 200 H 156 H 132 H 09/15/17 10:52 POC Glucose 103 Phys Exam - Physical Examination HEENT: PERRLA, moist MMs Neck: no JVD, supple Respiratory: no wheezing, no rales chest tube+ Cardiovascular: RRR, no significant murmur Gastrointestinal: soft, non-tender, positive bowel sounds Musculoskeletal: no edema, pulses present Neurological: non-focal, moves all 4 limbs Psychiatric: A&O x 3 Dx/Plan (1) S/P CABG x 5 Code(s): Z95.1 - PRESENCE OF AORTOCORONARY BYPASS GRAFT Status: Acute (2) NSTEMI (non-ST elevated myocardial infarction) Code(s): I21.4 - NON-ST ELEVATION (NSTEMI) MYOCARDIAL INFARCTION Status: Acute (3) HTN (hypertension) Code(s): I10 - ESSENTIAL (PRIMARY) HYPERTENSION Status: Chronic Qualifiers: Hypertension type: essential hypertension Qualified Code(s): I10 - Essential (primary) hypertension (4) CAD (coronary artery disease) Code(s): I25.10 - ATHSCL HEART DISEASE OF [place] CORONARY ARTERY W/O ANG PCTRS Status: Acute Qualifiers: Coronary Disease-Associated Artery/Lesion type: bypass graft [place] vs. transplanted heart: [place] heart - Plan post op cabg is doing well, got extubated last night -: has chest tubes -: is on asp, lipitor and lopressor -: mobilize per CTS advice -: i.spirometry, pain control * . Review of Systems - Medications/Allergies Allergies/Adverse Reactions: Allergies Allergy/AdvReac Type Severity Reaction Status Date / Time No Known Drug Allergies Allergy Verified 09/14/17 03:21 Medications: Current Medications Acetaminophen (Tylenol) 650 mg PO Q6H PRN PRN Reason: Headache/Fever Or Mild Pain Hydrocodone Bitart/Acetaminophen ([place] 5/325) 1 tab PO Q4H PRN PRN Reason: Moderate Pain (4-6) Hydrocodone Bitart/Acetaminophen ([place] 5/325) 2 tab PO Q4H PRN PRN Reason: Severe Pain (7-10) Last Admin: 09/16/17 08:08 Dose: 2 tab Al Hydroxide/Mg Hydroxide (Maalox) 30 ml PO Q4H PRN PRN Reason: Indigestion Albumin Human (Albumin 5%) 12.5 gm IVPB Q6H PRN PRN Reason: To Maintain SBP> 90 mmHG Stop: 09/16/17 15:14 Albumin Human (Albumin 5%) 25 gm IVPB Q6H PRN PRN Reason: To Maintain SBP > 90 mmHG Stop: 09/16/17 15:14 Last Admin: 09/15/17 18:13 Dose: 25 gm Albuterol/Ipratropium (Duoneb) 3 ml NEB P1BH-HK PRN PRN Reason: SHORTNESS OF BREATH Aspirin (Aspirin) 325 mg PO DAILY [facility] Last Admin: 09/16/17 08:08 Dose: 325 mg Atorvastatin Calcium (Lipitor) 20 mg PO HS KYE Bisacodyl (Dulcolax) 10 mg PO Q12H PRN PRN Reason: Constipation Bisacodyl (Dulcolax) 10 mg [place] Q12H PRN PRN Reason: Constipation Dextrose/Water (Dextrose 50%) 25 gm SLOW IVP PRN PRN PRN Reason: PER HYPOGLYCEMIC PROTOCOL Enoxaparin Sodium (Lovenox) 40 mg SC 2100 KYE Famotidine (Pepcid) 20 mg SLOW IVP Q12HR [facility] Last Admin: 09/16/17 08:08 Dose: 20 mg Fentanyl (Sublimaze) 25 mcg SLOW IVP Q2H PRN PRN Reason: Moderate Pain (4-6) Stop: 09/17/17 15:06 Fentanyl (Sublimaze) 50 mcg SLOW IVP Q2H PRN PRN Reason: Severe Pain (7-10) Stop: 09/17/17 15:06 Last Admin: 09/16/17 02:52 Dose: 50 mcg Glucagon (Glucagon) 1 mg SC PRN PRN PRN Reason: PER HYPOGLYCEMIC PROTOCOL Guaifenesin/Dextromethorphan (Robitussin Dm) 15 ml PO Q4H PRN PRN Reason: Cough Hydralazine HCl (Apresoline) 10 mg SLOW IVP Q6H PRN PRN Reason: To Maintain SBP< 140mmHG Dopamine HCl/Dextrose (Dopamine/D5w) 250 mls @ 0 mls/hr IVPB PRN PRN; Protocol ; Titrate PRN Reason: To maintain SBP > 90 mmHG Hetastarch/Sodium Chloride (Hespan) 500 mls @ 0 mls/hr IVPB PRN PRN; As Directed PRN Reason: To Maintain SBP > 90mmHg Stop: 09/16/17 15:06 Magnesium Sulfate 5 gm/ Sodium (Chloride) 1,010 mls @ 100 mls/hr IV ONE [facility] Stop: 09/16/17 15:16 Last Admin: 09/16/17 07:41 Dose: 1,010 mls Sodium Chloride (Normal Saline 0.9%) 1,000 mls @ 100 mls/hr IV .Q10H [facility] Last Admin: 09/16/17 10:15 Dose: Not Given Nicardipine HCl 25 mg/ Sodium (Chloride) 260 mls @ 0 mls/hr IVPB INF PRN; Protocol; Titrate PRN Reason: To Maintain SBP< 140mmHG Nitroglycerin/Dextrose (Nitroglycerin 50 Mg/250 Ml Bot) 250 mls @ 0 mls/hr IVPB PRN PRN; Protocol; Titrate PRN Reason: To Maintain SBP< 140mmHG Phenylephrine HCl (Kevin-Synephrine) 250 mls @ 0 mls/hr IVPB PRN PRN; Protocol; Titrate PRN Reason: To maintain SBP > 90 mmHG Insulin Human Regular 100 (units/ Sodium Chloride) 101 mls @ 0 mls/hr IVPB INF KYE; As Directed PRN Reason: Protocol Stop: 09/16/17 15:21 Dextrose/Water (D5w) 1,000 mls @ 0 mls/hr IV INF PRN; As Directed PRN Reason: PRN HYPOGLYCEMIC PROTOCOL Insulin Detemir (Levemir) 0 units SC ONE PRN PRN Reason: POST-OP PROTOCOL Stop: 09/16/17 18:00 Insulin Human Regular (Humulin R) 0 units SC Q4H PRN; Protocol PRN Reason: POST OP SLIDING SCALE Ketorolac Tromethamine (Toradol) 15 mg IVP Q6HR [facility] Stop: 09/18/17 18:01 Last Admin: 09/16/17 11:34 Dose: 15 mg Morphine Sulfate (Morphine) 2 mg SLOW IVP Q15MIN PRN PRN Reason: Severe Pain (7-10) Last Admin: 09/16/17 06:24 Dose: 2 mg Ondansetron HCl (Zofran) 4 mg IVP Q6H PRN PRN Reason: Nausea/Vomiting Last Admin: 09/16/17 06:24 Dose: 4 mg Potassium Chloride (Kcl) 20 meq IVPB PRN PRN PRN Reason: K level </= 4.0 Last Admin: 09/15/17 21:22 Dose: 20 meq Promethazine HCl (Phenergan) 6.25 mg IM Q4H PRN PRN Reason: Nausea/Vomiting Simvastatin (Zocor) 20 mg PO QPM [facility] Last Admin: 09/15/17 20:37 Dose: 20 mg
[2017-09-16] MEDS: Insulin Regular 300 UNITS/3 ML VIAL SC PRN ×2 (12:50→16:00)
[2017-09-16] MEDS ORDERED: Artificial Tear Sol 15 ML BOT EA EYE PRN (15:29)
[2017-09-16] MEDS: Enoxaparin Sodium 40 MG/0.4 ML SYRINGE SC SCH (21:03)
[2017-09-16] MEDS: Atorvastatin Calcium 20 MG TAB PO SCH (21:04)
[2017-09-17] MEDS: Ketorolac Tromethamine 30 MG/ML VIAL IVP SCH ×2 (00:04→05:09)
[2017-09-17] MEDS: HYDROcodone/Acetaminophen 5/325 mg Tablet PO PRN ×5 (01:33→18:20)
[2017-09-17 04:04] LABS: #Basophils 0.1 thou/uL (0.0-0.2); #Lymphocytes 2.4 thou/uL (1.20-3.40); #Monocytes 1.1 thou/uL (0.11-0.59); #Neutrophils 9.1 thou/uL (1.40-6.50); %Basophils 0.4 % (0.0-1.0); %Eosinophils 0.3 % (0.0-10.0); %Monocytes 8.9 % (0.0-10.0); Hematocrit 31.9 % (42.0-52.0); Mean Platelet Volume 7.9 fL (7.4-10.4); Red Blood Cell (RBC) Count 3.43 mill/uL (4.70-6.10); White Blood Cell (WBC) Count 12.8 thou/uL (4.8-10.8)
[2017-09-17 04:17] LABS: Anion Gap 7 mmol/L (10-20); BUN (Urea Nitrogen) 15 mg/dL (8.4-25.7); Calc. Creatinine Clearance 151 mL/min (70-130); Calcium 7.9 mg/dL (7.8-10.44); Carbon Dioxide 26 mmol/L (22-29); Chloride 109 mmol/L (98-107); Cholesterol 92 mg/dl (< 200 Desired); Estimated GFR-MDRD Greater than 90; LDL Cholesterol, Calculated 44 mg/dL
[2017-09-17] MEDS: Potassium Chloride 20 MEQ/100 ML PREMIX BAG IVPB PRN (05:10)
[2017-09-17] MEDS ORDERED: Bisacodyl 10 MG SUPP PR PRN (07:02)
[2017-09-17] MEDS ORDERED: Mineral Oil ENEMA PR PRN (07:02)
[2017-09-17] MEDS ORDERED: Mag-Al 1200 mg/1200 mg/30 ML UDCUP PO PRN (07:02)
[2017-09-17] MEDS ORDERED: Nitroglycerin 0.4 MG TAB 1 EACH SL PRN (07:02)
[2017-09-17] MEDS ORDERED: Zolpidem Tartrate 5 MG TAB PO PRN (07:02)
[2017-09-17] MEDS ORDERED: Milk Of Magnesia 30 ML UDCUP PO PRN (07:02)
[2017-09-17] MEDS ORDERED: Bisacodyl 5 MG TAB PO PRN (07:02)
--- NOTE | 2017-09-17 07:54 | PRG ---
DATE OF SERVICE: 09/17/2017 The patient is doing well. His chest tube was removed yesterday. PHYSICAL EXAMINATION: VITAL SIGNS: Temperature 98.6, pulse 94, blood pressure 104/69, O2 96%. HEENT: Unremarkable. NECK: No JVD. CHEST: Clear. CARDIAC: S1 and S2 regular. ABDOMEN: Soft. EXTREMITIES: No edema. LABORATORY: Sodium 130, potassium 4, chloride 109, CO2 26, BUN 15, creatinine 0.7, glucose 110, whi te blood cell count 12.8, hematocrit 31.9, platelet count 159. ASSESSMENT: 1. Post-coronary artery bypass graft. 2. Post respiratory failure. PLAN: Transfer to the floor later today. No acute pulmonary concerns. I will sign off. Please recall if further assistance is needed.
--- NOTE | 2017-09-17 08:26 | RAD ---
CHEST ONE VIEW: HISTORY: Post open heart surgery. COMPARISON: Chest, one view, from the prior day. FINDINGS: Central venous catheter, mediastinal drain, right thoracostomy tube are similar. Small left effusio n. Heart size is mildly prominent. No large pneumothorax. IMPRESSION: No significant change in the radiographic appearance of the chest. POS: [facility]
[2017-09-17] MEDS: Metoprolol Tartrate 25 MG TAB PO SCH ×2 (08:35→21:50)
[2017-09-17] MEDS: Aspirin 325 mg Enteric Coated Tablet PO SCH (08:35)
[2017-09-17] MEDS: Famotidine 20 MG TAB PO SCH ×2 (08:35→21:50)
--- NOTE | 2017-09-17 09:42 | PDOC.PN ---
- Subjective Encounter Start Date: 09/17/17 Encounter Start Time: 09:10 Subjective: no sob, feels a bit nauseated - Objective MAR Reviewed: Yes Vital Signs & Weight: Vital Signs (12 hours) Temp Pulse Resp BP Pulse Ox 09/17/17 08:00 97.8 F 89 12 108/78 98 09/17/17 07:52 97.8 F 86 16 97 09/17/17 07:43 97 09/17/17 07:00 97.8 F 09/17/17 04:00 98.6 F 09/16/17 23:00 98.7 F Weight Weight 208 lb 1.862 oz Most Recent Monitor Data Heart Rate from ECG 70 NIBP 145/73 NIBP BP-Mean 91 Respiration from ECG 20 SpO2 97 I&O: 09/16/17 09/17/17 09/18/17 06:59 06:59 06:59 Intake Total 1908 2322.1 240 Output Total 2245 1470 110 Balance -337 852.1 130 Result Diagrams: 09/17/17 03:30 09/17/17 03:30 Additional Labs: Accuchecks 09/17/17 09/16/17 09/16/17 07:08 22:01 15:56 POC Glucose 109 106 165 H 09/16/17 09/16/17 09/16/17 12:43 11:31 10:10 POC Glucose 121 H 104 107 Phys Exam - Physical Examination HEENT: PERRLA, moist MMs Neck: no JVD, supple Respiratory: no wheezing, no rales Cardiovascular: RRR, no significant murmur Gastrointestinal: soft, non-tender, positive bowel sounds Musculoskeletal: no edema, pulses present Neurological: non-focal, moves all 4 limbs Psychiatric: A&O x 3 Dx/Plan (1) S/P CABG x 5 Code(s): Z95.1 - PRESENCE OF AORTOCORONARY BYPASS GRAFT Status: Acute (2) NSTEMI (non-ST elevated myocardial infarction) Code(s): I21.4 - NON-ST ELEVATION (NSTEMI) MYOCARDIAL INFARCTION Status: Acute (3) HTN (hypertension) Code(s): I10 - ESSENTIAL (PRIMARY) HYPERTENSION Status: Chronic Qualifiers: Hypertension type: essential hypertension Qualified Code(s): I10 - Essential (primary) hypertension (4) CAD (coronary artery disease) Code(s): I25.10 - ATHSCL HEART DISEASE OF [place] CORONARY ARTERY W/O ANG PCTRS Status: Acute Qualifiers: Coronary Disease-Associated Artery/Lesion type: bypass graft [place] vs. transplanted heart: [place] heart - Plan is on asp, lopressor and lipitor -: chest tubes were removed -: working with spirometer -: encourage po intake -: to amb with cardiac rehab, march tx to tele * . Review of Systems - Medications/Allergies Allergies/Adverse Reactions: Allergies Allergy/AdvReac Type Severity Reaction Status Date / Time No Known Drug Allergies Allergy Verified 09/14/17 03:21 Medications: Current Medications Acetaminophen (Tylenol) 650 mg PO Q6H PRN PRN Reason: Headache/Fever Or Mild Pain Hydrocodone Bitart/Acetaminophen ([place] 5/325) 1 tab PO Q4H PRN PRN Reason: Moderate Pain (4-6) Last Admin: 09/17/17 01:33 Dose: 1 tab Al Hydroxide/Mg Hydroxide (Maalox) 30 ml PO Q4H PRN PRN Reason: Indigestion Aspirin (Ecotrin) 325 mg PO DAILY [facility] Last Admin: 09/17/17 08:35 Dose: 325 mg Atorvastatin Calcium (Lipitor) 20 mg PO HS [facility] Last Admin: 09/16/17 21:04 Dose: 20 mg Bisacodyl (Dulcolax) 10 mg PO Q12H PRN PRN Reason: Constipation Bisacodyl (Dulcolax) 10 mg [place] Q12H PRN PRN Reason: Constipation Enoxaparin Sodium (Lovenox) 40 mg SC 2100 [facility] Last Admin: 09/16/17 21:03 Dose: 40 mg Famotidine (Pepcid) 20 mg PO BID [facility] Last Admin: 09/17/17 08:35 Dose: 20 mg Fentanyl (Sublimaze) 25 mcg SLOW IVP Q2H PRN PRN Reason: Moderate Pain (4-6) Stop: 09/17/17 15:06 Guaifenesin/Dextromethorphan (Robitussin Dm) 15 ml PO Q4H PRN PRN Reason: Cough Magnesium Hydroxide (Milk Of Magnesium) 30 ml PO Q12H PRN PRN Reason: Constipation Metoprolol Tartrate (Lopressor) 12.5 mg PO BID [facility] Last Admin: 09/17/17 08:35 Dose: 12.5 mg Mineral Oil (Fleet Mineral Oil) 133 ml [place] DAILYPRN PRN PRN Reason: Constipation Nitroglycerin (Nitrostat) 0.4 mg SL Q5MIN PRN PRN Reason: Chest Pain Ondansetron HCl (Zofran) 4 mg IVP Q6H PRN PRN Reason: Nausea/Vomiting Last Admin: 09/16/17 06:24 Dose: 4 mg Zolpidem Tartrate (Ambien) 5 mg PO HSPRN PRN PRN Reason: Insomnia
[2017-09-17] MEDS ORDERED: Sodium Chloride 0.9% 0 ML ONE (17:37)
[2017-09-17] MEDS: Enoxaparin Sodium 40 MG/0.4 ML SYRINGE SC SCH (21:50)
[2017-09-17] MEDS: Atorvastatin Calcium 20 MG TAB PO SCH (21:50)
[2017-09-18] MEDS: HYDROcodone/Acetaminophen 5/325 mg Tablet PO PRN ×5 (00:24→19:14)
[2017-09-18] MEDS: Furosemide 40 MG TAB PO SCH (08:21)
[2017-09-18] MEDS: Famotidine 20 MG TAB PO SCH ×2 (08:22→20:11)
[2017-09-18] MEDS: Potassium Chloride 10 MEQ TAB PO SCH (08:22)
[2017-09-18] MEDS: Aspirin 325 mg Enteric Coated Tablet PO SCH (08:22)
[2017-09-18] MEDS: Metoprolol Tartrate 25 MG TAB PO SCH ×2 (08:23→20:11)
--- NOTE | 2017-09-18 12:58 | PDOC.PN ---
- Subjective Encounter Start Date: 09/18/17 Encounter Start Time: 12:57 Patient seen and examined. No new complaints. No overnight events - Objective MAR Reviewed: Yes Vital Signs & Weight: Vital Signs (12 hours) Temp Pulse Resp BP Pulse Ox 09/18/17 11:32 98.7 F 93 22 H 101/59 L 94 L 09/18/17 08:17 99.3 F 69 16 127/74 93 L 09/18/17 04:00 98.3 F 98 16 125/73 96 Weight Weight 210 lb Most Recent Monitor Data Heart Rate from ECG 70 NIBP 145/73 NIBP BP-Mean 91 Respiration from ECG 20 SpO2 97 I&O: 09/17/17 09/18/17 09/19/17 06:59 06:59 06:59 Intake Total 2322.1 1470 Output Total 1470 410 Balance 852.1 1060 Result Diagrams: 09/17/17 03:30 09/17/17 03:30 Additional Labs: Accuchecks 09/18/17 09/18/17 09/17/17 10:52 06:19 20:31 POC Glucose 150 H 116 H 123 H 09/17/17 16:32 POC Glucose 110 Phys Exam - Physical Examination Constitutional: NAD HEENT: PERRLA Respiratory: no wheezing Cardiovascular: no significant murmur Gastrointestinal: non-tender Musculoskeletal: pulses present Neurological: moves all 4 limbs Psychiatric: A&O x 3 Dx/Plan (1) S/P CABG x 5 Code(s): Z95.1 - PRESENCE OF AORTOCORONARY BYPASS GRAFT Status: Acute (2) CAD (coronary artery disease) Code(s): I25.10 - ATHSCL HEART DISEASE OF [place] CORONARY ARTERY W/O ANG PCTRS Status: Acute Qualifiers: Coronary Disease-Associated Artery/Lesion type: bypass graft [place] vs. transplanted heart: [place] heart (3) NSTEMI (non-ST elevated myocardial infarction) Code(s): I21.4 - NON-ST ELEVATION (NSTEMI) MYOCARDIAL INFARCTION Status: Acute (4) HTN (hypertension) Code(s): I10 - ESSENTIAL (PRIMARY) HYPERTENSION Status: Chronic Qualifiers: Hypertension type: essential hypertension Qualified Code(s): I10 - Essential (primary) hypertension - Plan * doing well * cont current rx * ambulate * cardiac rehab * f/u cvts and card plan
--- NOTE | 2017-09-18 13:20 | PRG ---
DATE OF SERVICE: 09/18/2017 SUBJECTIVE: Mr. Sharma is doing well. He is up and around, feels well. PHYSICAL EXAMINATION: VITAL SIGNS: Blood pressure 101/59, pulse 90, it is regular. LUNGS: Clear. CARDIAC: Normal S1 and S2. ABDOMEN: Soft, nontender. EXTREMITIES: There is no edema. ASSESSMENT: 1. Status post bypass surgery for three-vessel disease. 2. Ejection fraction 40% preoperatively. PLAN: 1. Continue beta blockers. 2. When blood pressure allows will add MATT inhibitors. 3. Continue statin and aspirin.
[2017-09-18] MEDS: Guaifenesin DM 100-10/5 ML UDCUP PO PRN ×2 (15:20→20:11)
[2017-09-18] MEDS: Atorvastatin Calcium 20 MG TAB PO SCH (20:11)
[2017-09-18] MEDS: Enoxaparin Sodium 40 MG/0.4 ML SYRINGE SC SCH (20:11)
[2017-09-19 05:36] LABS: #Eosinphils 0.1 thou/uL (0.0-0.7); #Lymphocytes 1.8 thou/uL (1.20-3.40); #Neutrophils 6.5 thou/uL (1.40-6.50); %Basophils 0.3 % (0.0-1.0); %Eosinophils 1.2 % (0.0-10.0); %Lymphocytes 19.4 % (21.0-51.0); %Monocytes 10.3 % (0.0-10.0); Hematocrit 32.9 % (42.0-52.0); Red Blood Cell (RBC) Count 3.56 mill/uL (4.70-6.10); White Blood Cell (WBC) Count 9.5 thou/uL (4.8-10.8)
[2017-09-19] MEDS: HYDROcodone/Acetaminophen 5/325 mg Tablet PO PRN ×3 (06:18→15:24)
[2017-09-19] MEDS: Guaifenesin DM 100-10/5 ML UDCUP PO PRN ×4 (06:20→22:23)
[2017-09-19] MEDS: Metoprolol Tartrate 25 MG TAB PO SCH ×2 (08:02→20:09)
[2017-09-19] MEDS: Famotidine 20 MG TAB PO SCH ×2 (08:02→20:09)
[2017-09-19] MEDS: Furosemide 40 MG TAB PO SCH (08:02)
[2017-09-19] MEDS: Potassium Chloride 10 MEQ TAB PO SCH (08:02)
[2017-09-19] MEDS: Aspirin 325 mg Enteric Coated Tablet PO SCH (08:02)
[2017-09-19] MEDS ORDERED: Lisinopril 5 MG TAB PO SCH (09:00)
--- NOTE | 2017-09-19 09:35 | DIS ---
HOSPITAL COURSE: This is a 57-year-old gentleman admitted through the emergency room with NSTEMI wi th multi-vessel coronary disease in left dominant system. He had apical akinesis on his left ventri culogram. He was taken to the operating room the following day where he underwent 5-vessel bypass w ith CRUZ to a diseased LAD, radial artery to a good obtuse marginal, saphenous vein graft to a left PDA and distal circumflex as well as small diseased ramus. His postoperative course was notable for resting tachycardia. He was somewhat slow to ambulate and did complain of significant discomfort w ith coughing. Incisions were healing nicely and is planned for discharge on 09/20/2017 on metoprolo l 25 b.i.d., lisinopril 5 at bedtime, aspirin 1 a day, atorvastatin 20 and a Tylenol #3 for pain.
--- NOTE | 2017-09-19 10:58 | PDOC.PN ---
- Subjective Encounter Start Date: 09/19/17 Encounter Start Time: 10:57 Patient seen and examined. No new complaints. No overnight events - Objective MAR Reviewed: Yes Vital Signs & Weight: Vital Signs (12 hours) Temp Pulse Resp BP BP Pulse Ox 09/19/17 10:31 129/75 09/19/17 08:34 98.3 F 78 16 118/78 93 L 09/19/17 08:05 98.3 F 78 16 93 L 09/19/17 08:02 88 09/19/17 04:00 98.1 F 88 20 120/81 92 L Weight Weight 207 lb Most Recent Monitor Data Heart Rate from ECG 70 NIBP 145/73 NIBP BP-Mean 91 Respiration from ECG 20 SpO2 97 I&O: 09/18/17 09/19/17 09/20/17 06:59 06:59 06:59 Intake Total 1470 720 Output Total 410 550 Balance 1060 170 Result Diagrams: 09/19/17 04:34 09/17/17 03:30 Additional Labs: Accuchecks 09/19/17 09/18/17 09/18/17 05:47 20:54 17:06 POC Glucose 116 H 133 H 143 H 09/18/17 10:52 POC Glucose 150 H Phys Exam - Physical Examination Constitutional: NAD HEENT: PERRLA Neck: no JVD Respiratory: no rales Cardiovascular: no significant murmur Gastrointestinal: non-tender Musculoskeletal: pulses present Neurological: moves all 4 limbs Psychiatric: A&O x 3 Dx/Plan (1) S/P CABG x 5 Code(s): Z95.1 - PRESENCE OF AORTOCORONARY BYPASS GRAFT Status: Acute (2) CAD (coronary artery disease) Code(s): I25.10 - ATHSCL HEART DISEASE OF [place] CORONARY ARTERY W/O ANG PCTRS Status: Acute Qualifiers: Coronary Disease-Associated Artery/Lesion type: bypass graft [place] vs. transplanted heart: [place] heart (3) NSTEMI (non-ST elevated myocardial infarction) Code(s): I21.4 - NON-ST ELEVATION (NSTEMI) MYOCARDIAL INFARCTION Status: Acute (4) HTN (hypertension) Code(s): I10 - ESSENTIAL (PRIMARY) HYPERTENSION Status: Chronic Qualifiers: Hypertension type: essential hypertension Qualified Code(s): I10 - Essential (primary) hypertension - Plan * doing well * possible d/c if ok with dr olivarez
[2017-09-19 12:49] LABS: Mode OR ABG; Oxyhemoglobin 97.6 % (94.0-97.0); Sodium 137 mmol/L (135-148); Vent YES
--- NOTE | 2017-09-19 14:23 | PRG ---
DATE OF SERVICE: 09/19/2017 SUBJECTIVE: Mr. Sharma is in the chair. He does have a cough. He says he has longstanding cough even most of his life. OBJECTIVE: VITAL SIGNS: Blood pressure 111/65, pulse is 90. LUNGS: Clear. CARDIAC: Normal S1, normal S2. ABDOMEN: Soft, nontender. EXTREMITIES: There is no significant edema. PERTINENT LABORATORY DATA: Hemoglobin 10.7. Most recent potassium was 4.0. ASSESSMENT: 1. Status post bypass surgery. 2. Moderately depressed left ventricular function. 3. Chronic cough. PLAN: 1. He is on metoprolol and eventually will probably change to carvedilol. 2. Change from lisinopril to losartan. 3. Continue statin. 4. Probably home tomorrow.
[2017-09-19] MEDS: Benzonatate 100 MG CAP PO SCH ×2 (15:24→20:08)
--- NOTE | 2017-09-19 15:51 | EKG ---
Test Reason : POST CABG Blood Pressure : / mmHG Vent. Rate : 079 BPM Atrial Rate : 079 BPM P-R Int : 148 ms QRS Dur : 088 ms QT Int : 432 ms P-R-T Axes : 031 052 093 degrees QTc Int : 495 ms Normal sinus rhythm Septal infarct (cited on or before 14-SEP-2017) Abnormal ECG When compared with ECG of 14-SEP-2017 12:19, Serial changes of Septal infarct Present Confirmed by DR. Burak ROMAN ([id number]) on 09/19/2017 3:51:25 PM Referred By: PHILIP Confirmed By:DR. Burak ROMAN
[2017-09-19] MEDS: Atorvastatin Calcium 20 MG TAB PO SCH (20:09)
[2017-09-19] MEDS: Enoxaparin Sodium 40 MG/0.4 ML SYRINGE SC SCH (20:10)
[2017-09-20] MEDS: Guaifenesin DM 100-10/5 ML UDCUP PO PRN ×2 (02:55→08:20)
[2017-09-20] MEDS: HYDROcodone/Acetaminophen 5/325 mg Tablet PO PRN ×2 (03:42→08:19)
[2017-09-20 08:11] VITALS: TEMP 98.4
[2017-09-20] MEDS: Benzonatate 100 MG CAP PO SCH (08:20)
[2017-09-20] MEDS: Metoprolol Tartrate 25 MG TAB PO SCH (08:20)
[2017-09-20] MEDS: Famotidine 20 MG TAB PO SCH (08:20)
[2017-09-20] MEDS: Aspirin 325 mg Enteric Coated Tablet PO SCH (08:20)
[2017-09-20] MEDS: Furosemide 40 MG TAB PO SCH (08:21)
[2017-09-20] MEDS: Potassium Chloride 10 MEQ TAB PO SCH (08:21)
[2017-09-20] MEDS ORDERED: Losartan 25 MG TAB PO SCH (09:00)
[2017-09-20 12:51] VITALS: BP 142/78
--- NOTE | 2017-09-20 13:45 | EKG ---
Test Reason : Blood Pressure : / mmHG Vent. Rate : 089 BPM Atrial Rate : 089 BPM P-R Int : 134 ms QRS Dur : 090 ms QT Int : 354 ms P-R-T Axes : 003 024 092 degrees QTc Int : 430 ms Sinus rhythm with occasional Premature ventricular complexes Marked ST abnormality, possible lateral subendocardial injury Abnormal ECG Confirmed by VIOLET HAN, VALENTINO ([id number]), editorial writer JACQUIE SULLIVAN ([id number]) on 09/20/2017 1:44:39 PM Referred By: Confirmed By:VALENTINO LAZO MD
== END 2017-09-20 10:25 | disposition home or self-care (01) | DRG 233 ==
LOC: ERS 00:47 → OBSVTOIN 02:14 → 2SW 02:14 → 2NO 06:20 → CCU 13:19 → 2NO 09-17 10:14
PROVIDERS: ADMIT Internal Medicine; ATTEND Internal Medicine
PROC: 4A023N7 Measurement of Cardiac Sampling and Pressure, Left Heart, Percutaneous Approach (ICD-10-PCS; 2017-09-14)
PROC: B2111ZZ Fluoroscopy of Multiple Coronary Arteries using Low Osmolar Contrast (ICD-10-PCS; 2017-09-14)
PROC: B2151ZZ Fluoroscopy of Left Heart using Low Osmolar Contrast (ICD-10-PCS; 2017-09-14)
PROC: 02100Z9 Bypass Coronary Artery, One Artery from Left Internal Mammary, Open Approach (ICD-10-PCS; principal; 2017-09-15)
PROC: 02100AW Bypass Coronary Artery, One Artery from Aorta with Autologous Arterial Tissue, Open Approach (ICD-10-PCS; 2017-09-15)
PROC: 021209W Bypass Coronary Artery, Three Arteries from Aorta with Autologous Venous Tissue, Open Approach (ICD-10-PCS; 2017-09-15)
PROC: 06BQ3ZZ Excision of Left Saphenous Vein, Percutaneous Approach (ICD-10-PCS; 2017-09-15)
PROC: 03BC0ZZ Excision of Left Radial Artery, Open Approach (ICD-10-PCS; 2017-09-15)
PROC: 5A1221Z Performance of Cardiac Output, Continuous (ICD-10-PCS; 2017-09-15)
DX: I21.4 Non-ST elevation (NSTEMI) myocardial infarction (principal); J96.90 Respiratory failure, unspecified, unspecified whether with hypoxia or hypercapnia; R00.0 Tachycardia, unspecified; I10 Essential (primary) hypertension; I25.119 Atherosclerotic heart disease of native coronary artery with unspecified angina pectoris; R05 Cough; E78.00 Pure hypercholesterolemia, unspecified
CPT/HCPCS: 36415; 36416; 71010; 76942; 80048; 80053; 80061; 80162; 82550; 82553; 82805; 83036; 83690; 84484; 85025; 85347; 85610; 85730; 86850; 86900; 86901; 93005; 93010; 93458; 93798; 94002; 94150; 99152; 99153; A4216; C1769; J1265; J1644; J1650; J1815; J1885; J2001; J2250; J2270; J2405; J2440; J2704; J2720; J3010; J3370; J3475; J3480; J7050; P9045; S0017; S0028

== ENCOUNTER 2017-12-17 19:32 | Observation (INO) | payer SELFPAY ==
--- NOTE | 2017-12-17 20:42 | RAD ---
PORTABLE CHEST: 12/17/17 HISTORY: Altered mental status. Dyspnea. COMPARISON: 09/17/17 study. Heart size is within normal limits. There are postop sternotomy changes. The lungs are clear of infil trates. IMPRESSION: No active intrathoracic disease. POS: [facility]
--- NOTE | 2017-12-17 20:52 | CT ---
CT OF BRAIN PERFORMED WITHOUT CONTRAST ENHANCEMENT: 12/17/17 HISTORY: Altered mental status. Patient may have hit head earlier today. The ventricular and cisternal system is within normal limits. There is no signs of intracerebral hemo rrhage or extra-axial fluid collections. Mastoid air cells are clear. There is opacification of the r ight maxillary sinus. Also mucosal change in ethmoid air cells and left maxillary sinus. IMPRESSION: No acute intracranial abnormalities. POS: [facility]
[2017-12-17 21:11] LABS: #Lymphocytes 2.9 thou/uL (1.20-3.40); #Monocytes 0.7 thou/uL (0.11-0.59); %Basophils 0.3 % (0.0-1.0); %Eosinophils 0.1 % (0.0-10.0); %Lymphocytes 21.1 % (21.0-51.0); %Monocytes 4.9 % (0.0-10.0); %Neutrophils 73.5 % (42.0-75.0); Hemoglobin 13.8 g/dL (14.0-18.0); Mean Corpuscular HGB CONC 33.6 g/dL (32.0-36.0); Mean Corpuscular Hemoglobin 29.6 pg (27.0-31.0); Mean Corpuscular Volume 88.2 fl (80.0-94.0); Mean Platelet Volume 7.5 fL (7.4-10.4); Platelet Count 332 thou/uL (130-400); RBC Distribution Width 12.6 % (11.5-14.5); Red Blood Cell (RBC) Count 4.66 mill/uL (4.70-6.10); White Blood Cell (WBC) Count 13.6 thou/uL (4.8-10.8)
[2017-12-17 21:31] LABS: Bilirubin Negative (Negative); Blood, Urine Negative (Negative); Clarity CLEAR (Clear); Glucose, Urine (Dipstick) Negative (Negative); Leukocyte Negative (Negative); Nitrite Negative (Negative); Protein, Urine (Dipstick) Negative (Neg-Trace); Specific Gravity, Urine 1.008 (1.002-1.036); Urobilinogen 0.2 mg/dL (0.2-1.0)
[2017-12-17 21:33] LABS: ALT (SGPT) 14 U/L (8-55); AST (SGOT) 16 U/L (5-34); Acetaminophen Less than 6.0 mcg/mL (10.0-30.0); Albumin 3.8 g/dL (3.5-5.0); Alcohol Less than 10 mg/dL (Less than 10); Alkaline Phosphatase 92 U/L (40-150); Anion Gap 12 mmol/L (10-20); BUN (Urea Nitrogen) 17 mg/dL (8.4-25.7); Bilirubin, Total 0.4 mg/dL (0.2-1.2); Calc. Creatinine Clearance 0 mL/min (70-130); Carbon Dioxide 23 mmol/L (22-29); Chloride 106 mmol/L (98-107); Estimated GFR-MDRD Greater than 90; Globulin 3.8 g/dL (2.4-3.5); Glucose 102 mg/dL (70-105); Potassium 3.8 mmol/L (3.5-5.1); Protein, Total 7.6 g/dL (6.0-8.3); Salicylate Less than 8.0 mg/dL (15.0-30.0); Sodium 137 mmol/L (136-145)
[2017-12-17 21:42] LABS: Amphetamine Not Detected (NotDetected); Barbiturates Screen Not Detected (NotDetected); Benzodiazepine Screen Not Detected (NotDetected); Cocaine Metabolite Screen Not Detected (NotDetected); Medtox Control Line Valid? VALID (VALID); Medtox Reader # READER 1; Methadone Not Detected (NotDetected); Methamphetamine Not Detected (NotDetected); Opiate Screen Not Detected (NotDetected); Oxycodone Screen Not Detected (NotDetected); Phencyclidine (PCP) Not Detected (NotDetected); THC/Cannabinoid Screen Not Detected (NotDetected); Tricyclic Screen Not Detected (NotDetected)
[2017-12-17] MEDS ORDERED: Metoprolol Tartrate 25 MG TAB PO SCH (23:30)
[2017-12-18] MEDS ORDERED: hydrALAZINE 20 MG/ML VIAL SLOW IVP PRN (01:22)
[2017-12-18] MEDS ORDERED: cloNIDine 0.1 MG TAB PO PRN (01:22)
[2017-12-18] MEDS ORDERED: Nitroglycerin 0.4 MG TAB (25 Tab Bottle) SL PRN (01:22)
[2017-12-18] MEDS ORDERED: Diabetic Tussin 200 MG/10 ML UDCUP PO PRN (01:22)
[2017-12-18] MEDS ORDERED: traMADol HCl 50 MG TAB PO PRN (01:22)
[2017-12-18] MEDS ORDERED: Acetaminophen 325 MG TAB PO PRN (01:22)
[2017-12-18] MEDS ORDERED: Ondansetron HCl/PF 4 MG/2 ML Vial IVP PRN (01:22)
[2017-12-18] MEDS ORDERED: Benzonatate 100 MG CAP PO PRN (01:22)
[2017-12-18] MEDS ORDERED: Mag-Al 1200 mg/1200 mg/30 ML UDCUP PO PRN (01:22)
[2017-12-18] MEDS ORDERED: Bisacodyl 5 MG TAB PO PRN (01:22)
[2017-12-18] MEDS ORDERED: Loratadine 10 MG TAB PO PRN (01:22)
[2017-12-18] MEDS ORDERED: Senokot 8.6 MG TAB PO PRN (01:22)
[2017-12-18] MEDS ORDERED: Calcium Carbonate 500 MG ChewTAB PO PRN (01:22)
[2017-12-18 02:45] VITALS: BMI 29.5
[2017-12-18] MEDS ORDERED: Lorazepam 2 MG/ML VIAL SLOW IVP SCH (05:30)
[2017-12-18 06:05] LABS: #Basophils 0.1 thou/uL (0.0-0.2); #Eosinphils 0.1 thou/uL (0.0-0.7); #Lymphocytes 2.9 thou/uL (1.20-3.40); #Monocytes 0.7 thou/uL (0.11-0.59); #Neutrophils 4.8 thou/uL (1.40-6.50); %Basophils 0.7 % (0.0-1.0); %Eosinophils 0.6 % (0.0-10.0); %Lymphocytes 34.1 % (21.0-51.0); %Monocytes 8.1 % (0.0-10.0); %Neutrophils 56.5 % (42.0-75.0); Hemoglobin 13.8 g/dL (14.0-18.0); Mean Corpuscular HGB CONC 33.9 g/dL (32.0-36.0); Mean Corpuscular Hemoglobin 29.9 pg (27.0-31.0); Mean Corpuscular Volume 88.2 fl (80.0-94.0); Mean Platelet Volume 7.9 fL (7.4-10.4); Platelet Count 321 thou/uL (130-400); RBC Distribution Width 12.8 % (11.5-14.5); Red Blood Cell (RBC) Count 4.61 mill/uL (4.70-6.10); White Blood Cell (WBC) Count 8.4 thou/uL (4.8-10.8)
[2017-12-18 06:25] LABS: Anion Gap 10 mmol/L (10-20); BUN (Urea Nitrogen) 17 mg/dL (8.4-25.7); Calc. Creatinine Clearance 132 mL/min (70-130); Calcium 9.2 mg/dL (7.8-10.44); Carbon Dioxide 24 mmol/L (22-29); Chloride 107 mmol/L (98-107); Estimated GFR-MDRD Greater than 90; Glucose 101 mg/dL (70-105); Potassium 3.8 mmol/L (3.5-5.1); Sodium 137 mmol/L (136-145)
[2017-12-18] MEDS ORDERED: FLU VACC QS2017-18 36 mo. & older 0.5 ML SYRINGE IM ONE (09:00)
[2017-12-18] MEDS ORDERED: Enoxaparin Sodium 40 MG/0.4 ML SYRINGE SC SCH (09:00)
[2017-12-18] MEDS ORDERED: Losartan 25 MG TAB PO SCH (09:00)
[2017-12-18] MEDS ORDERED: Metoprolol Tartrate 25 MG TAB PO SCH (09:00)
[2017-12-18] MEDS ORDERED: Aspirin 325 mg Enteric Coated Tablet PO SCH (09:00)
[2017-12-18] MEDS ORDERED: guaiFENesin ER 600 MG TAB PO SCH (09:00)
--- NOTE | 2017-12-18 09:29 | HP ---
Date of admission: 12/17/2017 PRIMARY CARE PHYSICIAN: [facility], Dr. Kemp CHIEF COMPLAINT: Confusion. HISTORY OF PRESENT ILLNESS: Mr. Dorsey is a pleasant 57-year-old male with past medical history of coronary artery disease, hypertension, who was brought in by the family today with the above-mention ed complaint. History is mainly obtained by the patient and supplemented by his sister present in e room. Electronic medical records have been reviewed and the case has been discussed with the admit [facility] physician. According to the patient's sister, he has been acting different today. He normally lives with his so n and dropped his granddaughter earlier in the morning to daycare and the son dropped the patient to his sister's house later in the day and she noticed that he was not acting right. The son has also n oticed this. The son told the sister that the patient has fallen in the shower and has hit his head. The patient does not really remember this but was noticed to be forgetful and acting confused about many things. Other than that, he has been in his usual health. He was not able to answer questions directly. Upon presentation into the emergency room, the patient's mentation has somewhat improved, but he stil l is confused about a lot of things. He is alert and oriented x3 at this point, but is still not abl e to recall most of the events of today. He is hemodynamically stable. His initial workup includes normal CT scan of the brain and normal chest x-ray as well as 12-lead EKG. His serum chemistries are unremarkable. His urine drug screen is negative and his urinalysis is negative. He had mild leukoc ytosis with WBCs of 13.6 without any left shift or evidence of infection. He denies any other recent illnesses. He denies any changes in his medications. He denies any muscl e weakness, paraesthesias, dysarthria or difficulty finding his words. PAST MEDICAL HISTORY: 1. Coronary artery disease, status post 5-vessel coronary artery bypass graft 2 months ago in er 2016. 2. Hypertension. PAST SURGICAL HISTORY: CABG x5 in 09/2017. SOCIAL HISTORY: He lives with his son and his family and denies any drug, tobacco or alcohol abuse. FAMILY HISTORY: Significant for coronary artery disease. ALLERGIES: No known medication allergies. CURRENT MEDICATIONS: As per the most recent discharge from the hospital 2 months ago include Lopress or 25 mg p.o. b.i.d., Cozaar 25 mg daily, Lipitor 20 mg daily, aspirin 325 mg daily, Tessalon Perles and Tylenol with Codeine as needed. CODE STATUS: FULL CODE. REVIEW OF SYSTEMS: The following complete review of systems was negative, unless otherwise mentioned in the HPI or below: Constitutional: Weight loss or gain, ability to conduct usual activities. Sk in: Rash, itching. Eyes: Double vision, pain. ENT/Mouth: Nose bleeding, neck stiffness, pain, te nderness. Cardiovascular: Palpitations, dyspnea on exertion, orthopnea. Respiratory: Shortness of breath, wheezing, cough, hemoptysis, fever or night sweats. Gastrointestinal: Poor appetite, abdom inal pain, heartburn, nausea, vomiting, constipation, or diarrhea. Genitourinary: Urgency, frequenc y, dysuria, nocturia. Musculoskeletal: Pain, swelling. Neurologic/Psychiatric: Anxiety, depressio n. Allergy/Immunologic: Skin rash, bleeding tendency. PHYSICAL EXAMINATION: VITAL SIGNS: Upon presentation include blood pressure of 176/109, pulse of 86, respirations 18, temp erature 98.6, saturating 97% on room air. GENERAL: No acute distress. Even though he is awake, alert, oriented x3, he does appear somewhat co nfused as to what happened and how did he end up in the emergency room today. He is having difficult y to recall all of the events from today. HEENT: Mucous membrane is moist and pink. No oropharyngeal exudate or erythema. Head is normocepha lic, atraumatic. Pupils are equal, reactive to light and accommodation. Extraocular movements are i ntact. NECK: Supple without any lymphadenopathy, JVD or bruit. CHEST: Clear to auscultation without any wheezing, rales or rhonchi. CARDIOVASCULAR: Rate and rhythm is regular without any murmur, rubs or gallops. ABDOMEN: Soft, nontender, nondistended with positive bowel sounds. EXTREMITIES: Free of any cyanosis, clubbing, or edema. NEUROLOGIC: Nonfocal. He does demonstrate poor short term memory. Otherwise, no focal motor or sen halima deficits. No nystagmus, no clonus, no asterixis. SKIN: Free of any rashes or bruises, feels warm and dry to touch. PSYCHIATRIC: Normal affect. LABORATORY DATA: A 12-lead EKG by my review shows nonspecific ST and T-wave changes with normal sinu s rhythm at [address] scan of the head my review has no evidence of bleed, mass or acu te changes. Chest x-ray by my review has no infiltrates, pneumothorax, hemothorax, masses or cardiom egaly. No pulmonary edema. CBC shows WBCs at 13.6, otherwise unremarkable. Serum chemistries are unremarkable. Ammonia level i s 30. BUN, creatinine, and liver enzymes are within normal limits. Urinalysis negative for any evid ence of infection. Urine drug screen is negative. Serum salicylates, acetaminophen and alcohol leve ls are unremarkable. IMPRESSION AND PLAN: 1. Confusion and altered mental status. It is not clear if the patient indeed did fall and hit his head. Nevertheless, in the absence of any other possible reason for his transient confusion and eligio ry issues concussion: Concussion is a most likely possibility. He will be admitted for observation on the neurological floor. We will do frequent neuro checks. Also, we will rule out cerebrovascular accident by obtaining an MRI of the brain. He is otherwise hemodynamically stable and will be monit ored on telemetry unit. We will restart his home medications. 2. Coronary artery disease, status post coronary artery bypass graft. We will restart his home medi cations of aspirin, statin, beta eliseo and ARB at this time. 3. Hypertension. Once again, it was high in the Emergency Room, but it is under better control with most recent blood pressure 147/99. He will receive his home medications tonight. 4. Code status: FULL CODE. 5. Deep venous thrombosis and gastrointestinal prophylaxis. DISPOSITION AND PLAN: Mr. Sharma is being admitted for transient memory loss and altered mental status which has signific antly improved. Likely diagnosis is concussion, but he will be admitted to rule out stroke and for f requent neuro checks under observation status. Further management will depend upon his clinical cour se.
[2017-12-18 12:20] VITALS: BP 160/90; TEMP 98.1
--- NOTE | 2017-12-18 14:01 | MRI ---
MRI OF THE BRAIN WITHOUT CONTRAST: Date: 12/18/17 INDICATION: History of altered mental status and fall. COMPARISON: CT of the brain dated 12/17/17. FINDINGS: No restricted diffusion is evident. There are remote appearing lacunar infarcts involving the right cerebellar hemisphere. Septum pelluci dum and third ventricle are midline. There are appropriate flow-voids seen within the major intracran ial vessels. There is mild chronic small vessel which matter ischemic change. There is marked mucosal thickening within the right maxillary sinus. There is mild mucosal thickening in the left maxillary sinus and ethmoid air cells. IMPRESSION: 1. No acute intracranial abnormality. 2. Remote lacunar infarcts involving the right cerebellar hemisphere. 3. Mild chronic small vessel ischemic change. 4. Moderate paranasal sinus disease. POS: GENNAH
--- NOTE | 2017-12-18 14:20 | DIS ---
DATE OF ADMISSION: 12/17/2017 DATE OF DISCHARGE: 12/18/2017 DISCHARGE DIAGNOSES: 1. Syncopal episode. 2. Closed head injury. 3. Probable concussive syndrome. 4. Hypertension. 5. Cerebrovascular disease. 6. Coronary artery disease. 7. Essential hypertension. CONSULTATIONS: None. PROCEDURE: MRI of the brain without contrast dated 12/18/2017 that showed no acute intracranial abno rmalities and some sinus mucosal thickening. HISTORY AND PHYSICAL: Mr. Sharma is a 57-year-old Latin-Swiss male, who presented to the emerge ncy department on 12/17/2017, brought in by family for confusion. He has been acting different the d ay of admission. He has had a chronic cough and that was nonproductive and no fevers. He told the f amily midday that he had fallen in the shower and hit his head, but did not really remember anything. He was brought to the emergency department for evaluation. He was alert and oriented x3, but not a ble to recall events prior to that. CT scan of the brain was negative. A chest x-ray and EKG were n egative. His chemistries were normal. We were consulted for admission for observation overnight. HOSPITAL COURSE: The patient was seen and examined by Dr. Corey. The patient was placed in the ob servation unit with telemetry monitoring. Overnight, he did well without any further episodes. MRI of the brain was done today that was negative and he was stable for discharge with outpatient followu p. PHYSICAL EXAMINATION: The patient was seen and examined on the day of discharge. Discharge plan and disposition were discussed with the patient [id number] at bedside with his daughter. DISCHARGE MEDICATIONS: 1. Aspirin 325 mg p.o. daily. 2. Lopressor 25 mg p.o. b.i.d. 3. Cozaar 25 mg daily. 4. Lipitor 20 mg p.o. daily. 5. Tessalon Perles. 6. Tylenol with codeine p.r.n. FOLLOWUP APPOINTMENT: Primary care physician within a week. DISCHARGE DIET: Heart healthy recommended. DISCHARGE ACTIVITY: Per cardiopulmonary limits. The patient was cautioned not to mix DayQuil and Ny Quil at the same time anymore. DISCHARGE CONDITION: Good. DISPOSITION: He will be discharged home via private vehicle.
[2017-12-18] MEDS ORDERED: Atorvastatin Calcium 20 MG TAB PO SCH (21:00)
--- NOTE | 2017-12-20 16:46 | EKG ---
Test Reason : Blood Pressure : / mmHG Vent. Rate : 088 BPM Atrial Rate : 088 BPM P-R Int : 134 ms QRS Dur : 086 ms QT Int : 378 ms P-R-T Axes : 057 060 073 degrees QTc Int : 457 ms Normal sinus rhythm Possible Left atrial enlargement RSR' or QR pattern in V1 suggests right ventricular conduction delay Borderline ECG Confirmed by DORIS JONES ([id number]), loan expeditor FELICITY RODARTE ([id number]) on 12/20/2017 4:45:52 PM Referred By: AKREN Confirmed By:DORIS JONES
== END 2017-12-18 16:31 | disposition home or self-care (01) ==
LOC: ERS 19:32 → 2SW 22:50
PROVIDERS: ADMIT Internal Medicine; ATTEND Internal Medicine
DX: R55 Syncope and collapse (principal); R41.82 Altered mental status, unspecified; S09.90XA Unspecified injury of head, initial encounter; I10 Essential (primary) hypertension; I63.9 Cerebral infarction, unspecified; I25.10 Atherosclerotic heart disease of native coronary artery without angina pectoris; Z79.82 Long term (current) use of aspirin; Z79.899 Other long term (current) drug therapy; Z95.1 Presence of aortocoronary bypass graft
CPT/HCPCS: 36415; 70450; 70551; 71045; 80048; 80053; 80306; 80307; 81003; 82140; 85025; 90471; 90682; 93005; 96374; G0008; G0378; J1650; J2060; Q2036

== ENCOUNTER 2020-08-03 17:15 | Observation (INO) | payer OTHER, SELFPAY ==
[2020-08-03] MEDS ORDERED: cefTRIAXone\\ROCEPHIN 1 GM VIAL ONE (17:33)
[2020-08-03 17:54] LABS: #Neutrophils 4.2 thou/uL (1.40-6.50); %Basophils 0.1 % (0.0-1.0); %Eosinophils 0.2 % (0.0-10.0); %Lymphocytes 27.3 % (21.0-51.0); %Monocytes 14.2 % (0.0-10.0); %Neutrophils 58.1 % (42.0-75.0); Hemoglobin 15.5 g/dL (14.0-18.0); Mean Corpuscular HGB CONC 33.8 g/dL (32.0-36.0); Mean Corpuscular Hemoglobin 30.9 pg (27.0-31.0); Mean Corpuscular Volume 91.3 fL (78.0-98.0); Mean Platelet Volume 7.8 fL (7.4-10.4); Platelet Count 273 thou/uL (130-400); RBC Distribution Width 12.2 % (11.5-14.5); White Blood Cell (WBC) Count 7.2 thou/uL (4.8-10.8)
--- NOTE | 2020-08-03 18:20 | RAD ---
FRONTAL RADIOGRAPH CHEST: 08/03/20 COMPARISON: 12/17/17. HISTORY: Cough, chest pain, shortness of breath. FINDINGS: Mild stable increased linear interstitial density with pulmonary hyperinflation. Heart and mediastina l contours are stable. Stable midline sternotomy wires. IMPRESSION: Stable appearance of the chest. POS: OFF
[2020-08-03 18:23] LABS: ALT (SGPT) 27 U/L (8-55); AST (SGOT) 22 U/L (5-34); Albumin 3.8 g/dL (3.5-5.0); Alkaline Phosphatase 83 U/L (40-110); Anion Gap 14 mmol/L (10-20); BUN (Urea Nitrogen) 21 mg/dL (8.4-25.7); Bilirubin, Total 0.2 mg/dL (0.2-1.2); Calc. Creatinine Clearance 0 mL/min (70-130); Calcium 8.6 mg/dL (7.8-10.44); Carbon Dioxide 22 mmol/L (22-29); Chloride 103 mmol/L (98-107); Estimated GFR-MDRD 59; Globulin 3.5 g/dL (2.4-3.5); Glucose 137 mg/dL (70-105); Lipase 21 U/L (8-78); Potassium 3.9 mmol/L (3.5-5.1); Protein, Total 7.3 g/dL (6.0-8.3); Sodium 135 mmol/L (136-145)
[2020-08-03] MEDS ORDERED: Clopidogrel Bisulfate 300 MG TAB ONE (18:33)
[2020-08-03] MEDS ORDERED: Acetaminophen 500 MG TAB ONE (18:41)
[2020-08-03 20:59] LABS: Bilirubin Negative (Negative); Blood, Urine Negative (Negative); Clarity Clear (Clear); Glucose, Urine (Dipstick) Normal (Negative); Ketone, Urine Negative (Negative); Leukocyte Negative Leu/uL (Negative); Nitrite Negative (Negative); Protein, Urine (Dipstick) Negative (Neg-Trace); Urobilinogen Normal mg/dL (Less than 2); pH, Urine 6.5 (5.0-9.0)
[2020-08-03 22:38] LABS: Troponin I Less than 0.010 ng/mL (< 0.028)
[2020-08-04 00:32] VITALS: BMI 31.4
[2020-08-04 01:58] LABS: Troponin I Less than 0.010 ng/mL (< 0.028)
[2020-08-04 02:00] LABS: SARS-CoV-2 NAA Rapid Test DETECTED (NotDetected)
[2020-08-04] MEDS ORDERED: Acetaminophen 650 MG Suppository PR PRN (03:35)
[2020-08-04] MEDS ORDERED: Acetaminophen 325 MG TAB PO PRN (03:35)
--- NOTE | 2020-08-04 05:56 | HP ---
TIME OF ASSESSMENT: 0300 hours. PRIMARY CARE PHYSICIAN: CHIEF COMPLAINT: Chest pain. HISTORY OF PRESENT ILLNESS: Mr. Sharma is a 60-year-old gentleman, with a known history of CAD status post CABG x5 in August [address] Lafleur, who presents to the emergency department due to concerns for chest pain and COVID exposure. The patient states he has had intermittent right-sided superficial chest pain for the last 3 days. He states he has been doing a lot of heavy lifting at home and was told previously not to lift anything heavy since his cardiac surgery. The patient states that the discomfort is worse on palpation and worse with movement. Reports a cough that has been intermittent for the last 3 days, productive for yellow sputum. Denies any hemoptysis. No associated shortness of breath or dyspnea on exertion. The patient states he has not had any trauma to his chest. The discomfort is right along the incision from his previous CABG and is nonradiating. He describes it as tenderness and rates it at 3/10 in severity. He states his son was recently diagnosed with COVID which prompted him to come into the emergency department given the cough he has been experiencing. He also states he has had a fever on and off for the last few days and occasional chills. REVIEW OF SYSTEMS: He reports having mild nausea, but denies any vomiting. Reports adequate fluid intake. Denies any abdominal pain or cramping. No urinary symptoms or bowel changes. No lower extremity swelling or calf tenderness. All other review of systems apart from those mentioned above in the HPI are negative. ED COURSE: In the emergency department, the patient underwent an EKG which demonstrated a heart rate of 100, QTc of 428, normal sinus rhythm. He had a chest x-ray done which showed mild stable increased linear and interstitial density with pulmonary hyperinflation which appears similar to prior x-ray done in November 2017. Stable midline sternotomy wires noted. No acute changes. LABORATORY STUDIES: Done showed a normal full blood count. D-dimer was normal at 0.31. Sodium 135, potassium 3.9, BUN 21, creatinine 1.26, GFR 59, glucose 137, lactic acid 1.6, calcium 8.6, magnesium 2. LFTs normal. Troponin negative x3. Albumin 3.8. Lipase 21. Urinalysis unremarkable. Rapid COVID testing was positive. In the ER, he was given 300 mg of clopidogrel, 1 g of Tylenol Extra Strength and was started on IV antibiotics with Rocephin. He received 1 L of normal saline. The patient is admitted for ACS, rule out [place], COVID. PAST MEDICAL HISTORY: 1. Hyperlipidemia. 2. Hypertension. 3. CAD. 4. History of [place] x1 in August 2017. 5. Anxiety. 6. Depression. PAST SURGICAL HISTORY: CABG x6 by Dr. Lafleur in August 2017. SOCIAL HISTORY: The patient denies any tobacco use, alcohol consumption, or illicit drug use. Fully independent. Lives with family. FAMILY HISTORY: Noncontributory. ALLERGIES: NO KNOWN DRUG ALLERGIES. CURRENT MEDICATIONS: 1. Atorvastatin 10 mg p.o. daily. 2. Aspirin 325 mg p.o. daily. 3. Zoloft 25 mg p.o. daily. 4. Lisinopril 20 mg p.o. daily. PHYSICAL EXAMINATION: GENERAL: The patient appears well developed, well nourished, in no acute distress. VITAL SIGNS: Temperature 98.3, pulse 88, respirations 20, O2 saturation 98% on room air, blood pressure 159/90. HEENT: Normocephalic and atraumatic. Pupils are equal, round, reactive to light. Sclerae icterus. Oropharynx is clear. NECK: Supple. LUNGS: Clear to auscultation bilaterally without any wheezes, rales, or rhonchi. CARDIAC: Regular rate and rhythm. There is some reproducible chest discomfort upon palpation of the right chest wall just right to the incision. Pain is also elicited with movement of his right upper extremity against resistance. He states discomfort is minimal. Also some mild discomfort with passive range of motion of his right upper extremity. ABDOMEN: Soft, nontender, nondistended. Normoactive bowel sounds present. No guarding or rigidity. No renal angle tenderness. EXTREMITIES: No lower leg swelling or edema. No calf tenderness. SKIN: Warm and dry. NEUROLOGIC: Alert and oriented x3. No neuro deficits on exam. INVESTIGATIONS: As mentioned above in HPI. IMPRESSION AND PLAN: Mr. Sharma is a pleasant 60-year-old gentleman who presents with concern for coronavirus disease exposure after his son was diagnosed with coronavirus disease, also complaining of what sounds like musculoskeletal type chest pain that is reproducible on exam and worse with movement. He has done some heavy lifting recently and has had a cough. Coronavirus disease testing done in the ER did come back positive. The patient was started on antibiotics in the ED. However, we will hold this. He has a normal white count and normal lactic acid. Given his history of myocardial infarction and previous coronary artery bypass grafting x6, the patient was admitted for acute coronary syndrome rule out. We will continue cardiac monitoring. Troponin negative x3. We would not order any stress test given the fact that he is coronavirus disease positive. We will place a consultation for Cardiology as I feel this pain is most likely musculoskeletal rather than cardiac in nature. However, should a stress test be recommended, it is possible, that would be done as an outpatient. Recommendations as per Cardiology were reviewed and appreciated. The patient is asymptomatic at present. We will check lipid panel with morning labs. Of note, D-dimer negative. We will keep the patient n.p.o. pending cardiac review. We will continue aspirin and statin. The patient is full code status. Surrogate decision maker is his sister, #[phone]. Case was discussed with attending, who agrees with plan of care as described above. Job ID: [id number]
[2020-08-04 07:12] LABS: Cardiac Risk 4.8 (Less than 4.5)
[2020-08-04] MEDS ORDERED: Clopidogrel Bisulfate 75 MG TAB PO SCH (09:00)
[2020-08-04] MEDS ORDERED: Famotidine/PF 20 mg/2ml Vial SLOW IVP SCH (09:00)
--- NOTE | 2020-08-04 14:10 | CON ---
DATE OF CONSULTATION: 08/04/2020 REASON FOR CONSULTATION: Chest pain in the setting of positive COVID status. HISTORY OF PRESENT ILLNESS: Mr. Sharma is a 60-year-old gentleman. He underwent coronary artery bypass grafting. In 2017, multivessel bypass surgery for multivessel coronary artery disease. The patient came for evaluation on this admission with chest pain and concern for COVID. Reading the notes, he said that the patient states he had intermittent right-sided superficial chest pain in the last few days, worse with palpation, worse with movement and also has a cough with productive yellow phlegm. He had bypass in 2017. REVIEW OF SYSTEMS: Mild nausea. PHYSICAL EXAMINATION: Not done in view of positive COVID status and current recommendations to minimize contact exposure . His blood pressure is 138/87, pulse is 100 to 110, sinus. Lungs, clear on the notes. DIAGNOSTIC DATA: Chest x-ray, no infiltrates. WBC 7.2. All the troponins are normal. LDL cholesterol is 97. The nasal serology is positive for COVID. D-dimer 0.31. EKG, sinus tachycardia and sinus rhythm. No acute changes. Cardiac enzymes were all negative. ASSESSMENT: 1. Chest pain, which historically sounds unlikely to be cardiac. 2. Positive COVID status. 3. Hypertension. 4. Previous bypass surgery. Bypass was done in August 2017. He had internal mammary to the left anterior descending, radial to the obtuse marginal, saphenous vein graft to the posterior descending artery, saphenous vein graft to distal circumflex and occluded ramus. RECOMMENDATIONS: 1. Beta-eliseo. 2. He is allergic to aspirin, therefore, agree with Plavix. 3. We would recommend statins. 4. No further recommendations at this time. Dr. Sinclair available if needed. 5. Reasonable to discharge him home when he looks stable from a pulmonary standpoint. Job ID: [id number]
[2020-08-04 15:06] VITALS: BP 159/99; TEMP 99.8
[2020-08-04] MEDS ORDERED: Rosuvastatin 20 MG TAB PO SCH (21:00)
--- NOTE | 2020-08-04 21:51 | CON ---
DATE OF CONSULTATION: 08/04/2020 REASON: COVID infection. HISTORY OF PRESENT ILLNESS: A 60-year-old with history of coronary artery disease, hyperlipidemia, and hypertension, who 3 to 4 days ago developed cough, general malaise and some chest pain, some fever and some dyspnea, came in to the emergency room, BP 140/94, pulse 96, respirations 20, temperature 101, and O2 sats 96 on room air. Exam was fairly unremarkable and chest x-ray normal. COVID test was positive with very mild increased interstitial density. He has remained saturating at 96% to 97% on room air, appears in no distress. Coughing less. No headaches. No chest pain. No abdominal pain or diarrhea. No genitourinary symptoms. Has noticed anosmia. PAST MEDICAL HISTORY: Hypertension, hyperlipidemia, coronary artery disease with recent [place] with bypass graft surgery. He is disabled now. CURRENT MEDICATIONS: His home medications mostly: 1. Toprol. 2. Crestor. 3. Pepcid. ALLERGIES: ASPIRIN. FAMILY HISTORY: One of the sons in [place] is in quarantine as he has COVID recently diagnosed. He lives with the other son, who is quarantined as well in [facility]. PHYSICAL EXAMINATION: VITAL SIGNS: T-max 99.6 to 99.8, BP 150/90, heart rate 68 to 78, respiratory rate 18, and O2 saturation 97 on room air. GENERAL: Appears in no distress. SKIN: Normal. No lymphadenopathy. HEENT: Normal. LUNGS: Clear to auscultation and percussion. S1, S2. Regular rate. No S3 or S4. ABDOMEN: Soft, not distended or tender. No ascites. No bladder distention. EXTREMITIES: Moves all extremities equally. Cognitive function is intact. LABORATORY STUDIES: Sodium 135, creatinine 1.26. Liver profile normal. Troponin less than 0.01. Albumin 3.8, lipase 21. D-dimer 0.31, which is normal. White cell count nl. He is not lymphocytopenic. COVID is positive. ASSESSMENT: Coronary artery disease, hypertension, mild COVID infection. DISCUSSION: The patient has normal O2 sats on room air and D-dimer is normal. He has early on infection development and I think he is eligible for continued to be monitored in the home setting and I would advise him to get an oximeter, so I can follow him up on Friday and see how he is doing. I discussed with him what signs and symptoms that would indicate deterioration. In that case, he would have to come back and then be considered for treatment with anti-inflammatory and antiviral medications. Job ID: [id number] SARINA
--- NOTE | 2020-08-05 05:43 | DIS ---
DATE OF ADMISSION: 08/03/2020 DATE OF DISCHARGE: 08/04/2020 DISCHARGE DIAGNOSES: COVID-19 viral syndrome The patient is a 60-year-old gentleman with past medical history of CAD, status post CABG in August 2017 who presents to emergency department due to concerns of chest pain and COVID exposure. The patient states he has had intermittent right-sided chest pain for the past 3 days. He also reports a cough that has been intermittent for last 3 days, productive of yellow-sputum. No shortness of breath or dyspnea on exertion. He reports a known exposure to COVID-19, which prompted him to come to the emergency department for evaluation. In the emergency department, the patient did test positive for COVID-19. With his extensive cardiac history, the patient was also given 300 mg of Plavix, 1 g of Tylenol and was started on IV antibiotics with Rocephin. The patient was admitted for further evaluation of ACS rule out. His troponins remain negative during the admission. Cardiology recommended discharge with beta-eliseo, Plavix and statins. Infectious disease was consulted while patient was in the hospital and no further recommendations per them. The patient can follow up in ID clinic in 3 days. PHYSICAL EXAMINATION: GENERAL: On exam, the patient was resting comfortably in bed, breathing on room air. HEAD: Normocephalic, atraumatic. HEART: He has regular rate and rhythm. No murmurs were heard. LUNGS: Clear to auscultation bilaterally. ABDOMEN: Soft, nontender, nondistended. EXTREMITIES: He had no edema of the bilateral lower extremities. DISCHARGE INSTRUCTIONS: DISCHARGE CONDITION: The patient was stable for discharge home. ACTIVITY: As tolerated. DIET: Heart healthy diet. MEDICATIONS: Medications on discharge were: 1. Atorvastatin 20 mg. 2. Zoloft 25 mg. 3. Lisinopril 20 mg. 4. Plavix 75 mg. FOLLOWUP: The patient is to followup with his PCP and Infectious Disease within 3 days. The patient was stable for discharge and discharged home. Isolation precautions were given to patient and explained that he should be quarantined once he gets home. Return precautions were given. Total time in discharging this patient took greater than 30 minutes. Job ID: [id number] [id number]
--- NOTE | 2020-08-05 12:22 | EKG ---
Test Reason : Blood Pressure : / mmHG Vent. Rate : 100 BPM Atrial Rate : 100 BPM P-R Int : 144 ms QRS Dur : 084 ms QT Int : 332 ms P-R-T Axes : 029 064 067 degrees QTc Int : 428 ms Normal sinus rhythm Septal infarct , age undetermined Abnormal ECG Confirmed by ROCCO GONZALEZ ([id number]), mapping editor FELICITY RODARTE ([id number]) on 08/05/2020 12:21:57 PM Referred By: Confirmed By:ROCCO GONZALEZ
== END 2020-08-04 18:05 | disposition home or self-care (01) ==
LOC: ERS 17:15 → 2SW 21:43
PROVIDERS: ADMIT Internal Medicine; ATTEND Internal Medicine
DX: U07.1 COVID-19 (principal); R05 Cough; R50.9 Fever, unspecified; R07.9 Chest pain, unspecified; I10 Essential (primary) hypertension; E78.5 Hyperlipidemia, unspecified; I25.10 Atherosclerotic heart disease of native coronary artery without angina pectoris; I25.2 Old myocardial infarction; F41.9 Anxiety disorder, unspecified; F32.9 Major depressive disorder, single episode, unspecified; Z79.899 Other long term (current) drug therapy; Z88.6 Allergy status to analgesic agent; Z95.1 Presence of aortocoronary bypass graft
CPT/HCPCS: 36415; 71045; 80053; 80061; 81003; 83605; 83690; 83735; 83880; 84484; 85025; 85379; 87040; 87086; 87635; 93005; 96365; 96375; G0378; J0696; S0028; U0002; U0003

== ENCOUNTER 2020-08-09 10:28 | Emergency (ER) | payer OTHER, SELFPAY ==
--- NOTE | 2020-08-09 11:13 | RAD ---
PORTABLE CHEST 1 VIEW: Date: 08/09/2020 Time: 1041 hours HISTORY: Patient tested positive for COVID-19 and is having difficulty breathing. COMPARISON: 08/03/2020. FINDINGS: Interval development of patchy peripheral opacities have developed. Changes of median sternotomy are again seen. The heart size is normal. No pneumothoraces or large effusions are seen. IMPRESSION: Findings are suspicious for COVID-19 pneumonia. POS: AH
[2020-08-09] MEDS ORDERED: Ondansetron PF 4 MG/2 ML Vial ONE (11:22)
[2020-08-09] MEDS ORDERED: Ketorolac Tromethamine 30 MG/ML VIAL ONE (11:24)
[2020-08-09 11:32] LABS: #Lymphocytes 0.8 thou/uL (1.20-3.40); #Monocytes 0.3 thou/uL (0.11-0.59); #Neutrophils 7.4 thou/uL (1.40-6.50); %Basophils 0.2 % (0.0-1.0); %Lymphocytes 9.3 % (21.0-51.0); %Monocytes 3.9 % (0.0-10.0); %Neutrophils 86.6 % (42.0-75.0); Hemoglobin 13.9 g/dL (14.0-18.0); Mean Corpuscular HGB CONC 33.7 g/dL (32.0-36.0); Mean Corpuscular Hemoglobin 30.2 pg (27.0-31.0); Mean Corpuscular Volume 89.6 fL (78.0-98.0); Mean Platelet Volume 7.8 fL (7.4-10.4); Platelet Count 247 thou/uL (130-400); White Blood Cell (WBC) Count 8.5 thou/uL (4.8-10.8)
[2020-08-09 11:54] LABS: ALT (SGPT) 31 U/L (8-55); AST (SGOT) 36 U/L (5-34); Albumin 3.6 g/dL (3.5-5.0); Alkaline Phosphatase 61 U/L (40-110); Anion Gap 14 mmol/L (10-20); BUN (Urea Nitrogen) 18 mg/dL (8.4-25.7); Bilirubin, Total 0.4 mg/dL (0.2-1.2); Calc. Creatinine Clearance 0 mL/min (70-130); Calcium 8.4 mg/dL (7.8-10.44); Carbon Dioxide 21 mmol/L (22-29); Chloride 105 mmol/L (98-107); Estimated GFR-MDRD 83; Globulin 3.7 g/dL (2.4-3.5); Glucose 115 mg/dL (70-105); Potassium 3.7 mmol/L (3.5-5.1); Protein, Total 7.3 g/dL (6.0-8.3); Sodium 136 mmol/L (136-145)
== END 2020-08-09 12:48 | disposition home or self-care (01) ==
LOC: ERS 10:28
DX: U07.1 COVID-19 (principal); F41.9 Anxiety disorder, unspecified; F32.9 Major depressive disorder, single episode, unspecified; E78.5 Hyperlipidemia, unspecified; I25.2 Old myocardial infarction; I10 Essential (primary) hypertension; Z79.899 Other long term (current) drug therapy
CPT/HCPCS: 36415; 71045; 80053; 83880; 84484; 85025; 93005; 96361; 96374; 96375; J1885; J2405

== ENCOUNTER 2023-03-22 17:42 | Emergency (ER) | payer SELFPAY ==
[2023-03-22] MEDS ORDERED: Fluorescein Opthalmic Strip ONE (19:03)
[2023-03-22] MEDS ORDERED: Proparacaine 0.5% Opth 15 ML BOT ONE (19:03)
== END 2023-03-22 19:54 | disposition home or self-care (01) ==
LOC: ERS 17:42
DX: H10.9 Unspecified conjunctivitis (principal); E78.5 Hyperlipidemia, unspecified; I25.10 Atherosclerotic heart disease of native coronary artery without angina pectoris; I10 Essential (primary) hypertension
CPT/HCPCS: 99283